=== PATIENT | male | born 1940 | race Caucasian/White ===

== ENCOUNTER 2021-12-10 15:01 | Emergency (ER) | payer OTHER, SELFPAY ==
[2021-12-10 15:06] VITALS: BP 147/80; PULSE 97; RESP 20; TEMP 36.4; O2SAT 96
--- NOTE | 2021-12-10 15:19 | ED.SKABFB ---
HPI - Skin/Abscess/Foreign Bdy General Chief complaint: Skin/Abscess/Foreign Body Stated complaint: boil Time Seen by Provider: 12/10/21 15:19 Source: patient Mode of arrival: ambulatory Limitations: no limitations History of Present Illness HPI narrative: 81 y/o male presented for c/o abscess to right upper thigh onset 5 days ago, states it has opened and drained but continues to drain. Endorses tenderness to the site when walking or sitting. Denies n/v/f/c. Denies any other locations. Has applied gauze to the site. complaint: rash Related Data Home Medications Medication Instructions Recorded Confirmed amlodipine 10 mg tablet 1 tablet PO DAILY 12/10/21 12/10/21 bimatoprost 0.01 % eye drops 1 drp EACH EYE DAILY 12/10/21 12/10/21 (Falguni) ezetimibe 10 mg tablet 1 tablet PO DAILY 12/10/21 12/10/21 latanoprost 0.005 % eye drops 1 drp EACH EYE HS 12/10/21 12/10/21 tamsulosin 0.4 mg capsule 1 cap PO DAILY 12/10/21 12/10/21 terazosin 10 mg capsule 1 cap PO DAILY 12/10/21 12/10/21 Allergies Allergy/AdvReac Type Severity Reaction Status Date / Time No Known Allergies Allergy Verified 12/10/21 15:03 Review of Systems Review of Systems: CONSTITUTIONAL: Denies body aches, fever, chills, or sweats. CARDIOVASCULAR: Denies chest pain, palpitations, or edema. RESPIRATORY: Denies cough or dyspnea. SKIN: endorses boil MUSCULOSKELETAL: Denies back pain, joint pain, or myalgia. NEUROLOGIC: Denies headache, numbness, tingling, or weakness. [facility] Past Medical History Medical History Anxiety Arthritis Hypertension Kidney stone Skin cancer Surgical History Surgical History History of partial knee replacement Family History Family History Mother , Age 89 Heart problems Arthritis Father , Age 69 Colon Cancer Colon cancer Grandparent , Age 94 Old Age No problems noted. Grandparent , Age 76 Heart Problems No problems noted. Grandparent , Age 72 Heart Problems No problems noted. Grandparent , Age 82 Heart Problems COPD (chronic obstructive pulmonary disease) Son , Age 54 Heart Problems No problems noted. Social History Social History Smoking status: Never smoker Alcohol intake: never Substance use: never Gender identity (if verbalized by the patient): Male Comments At time of signature, I have reviewed and agree with nursing past medical, surgical, social and family history unless otherwise noted. Please see nursing chart for further information. There is no relevant family history pertinent to the presenting complaint Exam Narrative: GENERAL: Well-appearing ENT: Mucous membranes moist. Oropharynx without edema, erythema or lesions. NECK: Supple. No lymphadenopathy CHEST: Clear to auscultation. No respiratory distress. HEART: Regular rate and rhythm. SKIN: Warm, dry. Right upper inner thigh with abscess approx 2cm diameter fluctuant center, scant amount of active purulent drainage; surrounding erythema and induration approx 10 cm diameter. NEURO: Alert and oriented x3. Course Course Emergency Course: Patient is aware of diagnosis, understands and agrees to treatment plan. Anticipatory guidance given. Patient agrees to follow-up as directed and is aware of reasons to seek care at the emergency department. Portions of this record may have been created with voice recognition software Level of Care: Express Care Visit Vital Signs Vital signs: Vital Signs Temperature 97.5 F L 12/10/21 15:06 Pulse Rate 97 12/10/21 15:06 Respiratory Rate 20 12/10/21 15:06 Blood Pressure 147/80 H 12/10/21 15:06
[2021-12-10] MEDS: LIDOCAINE HCL 1% LOCAL INJ 20 ML VIAL 5 ML INFILTRATE (15:33)
== END 2021-12-10 16:05 | disposition home or self-care (01) ==
PROVIDERS: Emergency Provider Nurse Practitioner Family
DX: L02.415 Cutaneous abscess of right lower limb (principal); M19.90 Unspecified osteoarthritis, unspecified site; I10 Essential (primary) hypertension; Z96.659 Presence of unspecified artificial knee joint; Z85.828 Personal history of other malignant neoplasm of skin
CPT/HCPCS: 10061; 87070; 87075; 87147; 87181; 87186; 87205; 99213; G0463

== ENCOUNTER 2021-12-15 18:23 | Emergency (ER) | payer OTHER, SELFPAY ==
[2021-12-15 19:03] VITALS: BP 139/86; PULSE 92; RESP 20; TEMP 36.3; O2SAT 98
--- NOTE | 2021-12-15 19:07 | ED.SKABFB ---
HPI - Skin/Abscess/Foreign Bdy General Chief complaint: Skin/Abscess/Foreign Body Stated complaint: Boil Time Seen by Provider: 12/15/21 19:10 Source: patient and RN notes reviewed Mode of arrival: ambulatory Limitations: no limitations History of Present Illness HPI narrative: 81-year-old male presents to the [facility], was seen on December 10 and had an abscess opened and drained. At that time it was packed. Comes in today with increased pain and swelling. MD complaint: abscess/boil Related Data Home Medications Medication Instructions Recorded Confirmed amlodipine 10 mg tablet 1 tablet PO DAILY 12/10/21 12/15/21 bimatoprost 0.01 % eye drops 1 drp EACH EYE DAILY 12/10/21 12/15/21 (Lumigan) ezetimibe 10 mg tablet 1 tablet PO DAILY 12/10/21 12/15/21 latanoprost 0.005 % eye drops 1 drp EACH EYE HS 12/10/21 12/15/21 tamsulosin 0.4 mg capsule 1 cap PO DAILY 12/10/21 12/15/21 terazosin 10 mg capsule 1 cap PO DAILY 12/10/21 12/15/21 Allergies Allergy/AdvReac Type Severity Reaction Status Date / Time No Known Allergies Allergy Verified 12/10/21 15:03 Review of Systems Review of Systems: All systems reviewed & are unremarkable except as noted in HPI and below Constitutional: Constitutional: Reports no additional constitutional complaints, Denies chills and Denies fever(s) Eyes: Eyes: Reports no additional eye complaints ENT: Reports system reviewed and no additional complaints, except as documented Cardiovascular: Cardiovascular: Reports no additional cardiovascular complaints Respiratory: Respiratory: Reports no additional respiratory complaints Gastrointestinal: Gastrointestinal: Reports no additional gastrointestinal complaints Musculoskeletal: Musculoskeletal: Reports no additional musculoskeletal complaints Integumentary/Breasts: Skin/Breast: Reports as per HPI and Reports erythema (Inner upper right thigh) Neurologic: Reports system reviewed and no additional complaints, except as documented Psychiatric: Psychiatric: Reports no additional psychiatric complaints Allergic/Immunologic: Allergic/Immunologic: Reports no additional allergic/immunologic complaints [facility] Past Medical History Medical History Anxiety Arthritis Hypertension Kidney stone Skin cancer Surgical History Surgical History History of partial knee replacement Family History Family History Mother , Age 89 Heart problems Arthritis Father , Age 69 Colon Cancer Colon cancer Grandparent , Age 94 Old Age No problems noted. Grandparent , Age 76 Heart Problems No problems noted. Grandparent , Age 72 Heart Problems No problems noted. Grandparent , Age 82 Heart Problems COPD (chronic obstructive pulmonary disease) Son , Age 54 Heart Problems No problems noted. Social History Social History Smoking status: Never smoker Alcohol intake: never Substance use: never Gender identity (if verbalized by the patient): Male Comments At the time of my signature, I reviewed and agree with the nursing past medical, surgical, social, and family history. There is no relevant family history pertinent to the patient complaint. Exam Const: General: healthy appearing, no acute distress and alert Nutritional Appearance: well nourished Orientation/consciousness: patient oriented x3 Limitations: no limitations HENMT: Head: normal to inspection Ears: external ears normal Eyes: General: appearance normal, both eyes and all related structures Pupils: Equal, round and reactive pupils present Neck: Neck: normal visual inspection, no lymphadenopathy and no meningeal s
== END 2021-12-15 19:18 | disposition short-term general hospital (02) ==
PROVIDERS: Emergency Provider Nurse Practitioner; PCP Internal Medicine
DX: L03.113 Cellulitis of right upper limb (principal); M19.90 Unspecified osteoarthritis, unspecified site; F41.9 Anxiety disorder, unspecified; Z85.828 Personal history of other malignant neoplasm of skin
CPT/HCPCS: 99212; G0463

== ENCOUNTER 2021-12-15 20:39 | Emergency (ER) | payer OTHER, SELFPAY ==
[2021-12-15 20:49] VITALS: BP 130/78; PULSE 105; RESP 14; TEMP 36.5; O2SAT 97
--- NOTE | 2021-12-15 21:36 | ED.SKABFB ---
HPI - Skin/Abscess/Foreign Bdy General Chief complaint: Skin/Abscess/Foreign Body Stated complaint: wound on upper right leg. Time Seen by Provider: 12/15/21 20:55 Source: patient History of Present Illness HPI narrative: Patient presents with lesion on his right leg. Patient reports he has had symptoms for little over a week was seen in urgent care started on Keflex for 5 days reports there is still some redness and is referred to the ER for further evaluation. Patient denies any fevers, chills, nausea, vomiting. Reports his pain is greatly improved and overall is feeling better after his course but there is still some redness. Related Data Home Medications Medication Instructions Recorded Confirmed amlodipine 10 mg tablet 1 tablet PO DAILY 12/10/21 12/15/21 bimatoprost 0.01 % eye drops 1 drp EACH EYE DAILY 12/10/21 12/15/21 (Blaineaure) ezetimibe 10 mg tablet 1 tablet PO DAILY 12/10/21 12/15/21 latanoprost 0.005 % eye drops 1 drp EACH EYE HS 12/10/21 12/15/21 tamsulosin 0.4 mg capsule 1 cap PO DAILY 12/10/21 12/15/21 terazosin 10 mg capsule 1 cap PO DAILY 12/10/21 12/15/21 Allergies Allergy/AdvReac Type Severity Reaction Status Date / Time No Known Allergies Allergy Verified 12/15/21 20:53 Review of Systems Review of Systems: CONSTITUTIONAL: Denies fever, chills, or sweats. EYES: Denies visual changes, redness, or discharge. ENT: Denies rhinorrhea, congestion, sore throat, or otalgia. CARDIOVASCULAR: Denies chest pain, palpitations, or edema. RESPIRATORY: Denies cough or dyspnea. GASTROINTESTINAL: Denies abdominal pain, nausea, vomiting, or diarrhea. GENITOURINARY: Denies dysuria or hematuria. SKIN: Denies rash or itching. MUSCULOSKELETAL: Denies back pain, joint pain, or myalgia. NEUROLOGIC: Denies headache, numbness, dizziness, or weakness. PSYCHIATRIC: Denies anxiety or depression. All systems reviewed & are unremarkable except as noted in HPI and below PMFSH Past Medical History Medical History Anxiety Arthritis Hypertension Kidney stone Skin cancer Surgical History Surgical History History of partial knee replacement Family History Family History Mother , Age 89 Heart problems Arthritis Father , Age 69 Colon Cancer Colon cancer Grandparent , Age 94 Old Age No problems noted. Grandparent , Age 76 Heart Problems No problems noted. Grandparent , Age 72 Heart Problems No problems noted. Grandparent , Age 82 Heart Problems COPD (chronic obstructive pulmonary disease) Son , Age 54 Heart Problems No problems noted. Social History Social History Smoking status: Never smoker Alcohol intake: never Substance use: never Gender identity (if verbalized by the patient): Male Exam Narrative: GENERAL: Well-appearing, well-nourished, and in no acute distress. HEAD: Normocephalic, atraumatic. EYES: PERRLA and EOMI. ENT: Nares clear, no rhinorrhea or epistaxis. Mucous membranes moist. NECK: Supple. No masses. No JVD EXTREMITIES: Normal range of motion. Open wound on the right medial thigh approximately 1 and half centimeters by 5 cm with surrounding erythema and there is mild purulent drainage SKIN: Warm, dry, no rash. NEURO: No focal deficits. Alert and oriented x3. PSYCH: Normal mood and affect. Course Vital Signs Vital signs: Vital Signs Temperature 36.5 C 12/15/21 20:49 Pulse Rate 105 H 12/15/21 20:49 Respiratory Rate 14 12/15/21 20:49 Blood Pressure 130/78 12/15/21 20:49 Pulse Oximetry 97 12/15/21 20:49 Oxygen Delivery Room Air 12/15/21 20:49 Temperature 36.5 C 12/15/21 20:49 Puls
== END 2021-12-15 21:51 | disposition home or self-care (01) ==
PROVIDERS: Emergency Provider Emergency Medicine; PCP Internal Medicine
DX: L03.115 Cellulitis of right lower limb (principal); F41.9 Anxiety disorder, unspecified; M19.90 Unspecified osteoarthritis, unspecified site; I10 Essential (primary) hypertension
CPT/HCPCS: 99283

== ENCOUNTER 2022-02-06 15:50 | Emergency (ER) | payer OTHER, SELFPAY ==
--- NOTE | 2022-02-06 15:52 | ED.SKABFB ---
HPI - Skin/Abscess/Foreign Bdy General Chief complaint: Skin/Abscess/Foreign Body Stated complaint: Infection in the groin Time Seen by Provider: 02/06/22 16:10 Source: patient and RN notes reviewed Mode of arrival: ambulatory Limitations: no limitations History of Present Illness HPI narrative: 82-year-old male presents concern for redness, drainage, pain to his right groin and right testicle. He reports he was treated the beginning of December for an abscess and a staph infection. He reports he finished the antibiotic and the previously infected area is completely healed. He reports he noticed new redness, pain, drainage very close to the old infection several days ago. Reports it is spread to his scrotum. He denies fever, bodies, chills, sweats complaint: other (Infection) Related Data Home Medications Medication Instructions Recorded Confirmed amlodipine 10 mg tablet 1 tablet PO DAILY 12/10/21 12/15/21 bimatoprost 0.01 % eye drops 1 drp EACH EYE DAILY 12/10/21 12/15/21 (Lumigan) ezetimibe 10 mg tablet 1 tablet PO DAILY 12/10/21 12/15/21 latanoprost 0.005 % eye drops 1 drp EACH EYE HS 12/10/21 12/15/21 terazosin 10 mg capsule 1 cap PO DAILY 12/10/21 12/15/21 Allergies Allergy/AdvReac Type Severity Reaction Status Date / Time No Known Allergies Allergy Verified 02/06/22 16:08 Review of Systems Review of Systems: CONSTITUTIONAL: Denies malaise, chills, sweats, or fever. EYES: Denies redness, or discharge. ENT: Denies rhinorrhea, congestion, swollen lips, swollen tongue CARDIOVASCULAR: Denies chest pain, palpitations, or edema. RESPIRATORY: Denies cough or dyspnea. GASTROINTESTINAL: Denies abdominal pain, nausea, vomiting SKIN: Reports redness, warmth, tenderness to the right groin and scrotum MUSCULOSKELETAL: Denies joint pain or myalgia. NEUROLOGIC: Denies headache. All systems reviewed & are unremarkable except as noted in HPI and below PMFSH Past Medical History Medical History Anxiety Arthritis Hypertension Kidney stone Skin cancer Surgical History Surgical History History of partial knee replacement Family History Family History Mother , Age 89 Heart problems Arthritis Father , Age 69 Colon Cancer Colon cancer Grandparent , Age 94 Old Age No problems noted. Grandparent , Age 76 Heart Problems No problems noted. Grandparent , Age 72 Heart Problems No problems noted. Grandparent , Age 82 Heart Problems COPD (chronic obstructive pulmonary disease) Son , Age 54 Heart Problems No problems noted. Social History Social History Smoking status: Never smoker Alcohol intake: never Substance use: never Gender identity (if verbalized by the patient): Male Comments At time of signature, agree with nursing past medical, surgical, social and family history. There is no relevant family history pertinent to the presenting complaint Exam Narrative: GENERAL: Well-appearing, well-nourished, and in no acute distress. HEAD: Normocephalic, atraumatic. EYES: PERRLA, conjunctivae clear, and EOMI. ENT: Mucous membranes moist. Oropharynx without edema, erythema or lesions. NECK: Supple. No lymphadenopathy CHEST: Clear to auscultation. No respiratory distress. HEART: Regular rate and rhythm. SKIN: Warm, dry. Erythema, warmth, induration, purulent drainage noted to the right groin extending into the right scrotum, no palpable fluctuation NEURO: Alert and oriented x3. PSYCH: Normal mood and affect Course Course Emergency Course: Patient is aware of, understands and agrees to be transferred to the emergency department. Anti
[2022-02-06 15:58] VITALS: BP 131/91; PULSE 103; RESP 18; TEMP 36.7; O2SAT 97
== END 2022-02-06 16:28 | disposition short-term general hospital (02) ==
PROVIDERS: Emergency Provider Nurse Practitioner; PCP Internal Medicine
DX: L08.9 Local infection of the skin and subcutaneous tissue, unspecified (principal); M19.90 Unspecified osteoarthritis, unspecified site; I10 Essential (primary) hypertension; Z85.828 Personal history of other malignant neoplasm of skin
CPT/HCPCS: 87070; 87075; 87076; 87147; 87185; 87205; 99213; G0463

== ENCOUNTER 2022-02-06 16:48 | Emergency (ER) | payer OTHER, SELFPAY ==
[2022-02-06 17:59] VITALS: BP 143/83; PULSE 90; RESP 18; TEMP 36.2; O2SAT 97
[2022-02-06 19:32] VITALS: BP 157/88; PULSE 108; RESP 18; O2SAT 97
[2022-02-06 19:34] LABS: Basophils Absolute Auto 0.1 K/mm3 (0.0-0.1); Basophils Percent Auto 0.5 % (0.2-1.2); Eosinophils Percent Auto 0.2 % (0-4.4); Hematocrit 39.3 % (42.0-52.0); Hemoglobin 12.7 g/dL (14.0-18.0); Immature Granulocyte Absolute 0.06 K/mm3 (0.00-0.031); Immature Granulocyte Percent A 0.5 % (0-0.5); Lymphocytes Absolute Auto 1.13 K/mm3 (0.9-3.2); Lymphocytes Percent Auto 10.3 % (18.3-44.2); Mean Corpuscular HGB Conc 32.3 g/dl (32-36); Mean Corpuscular Hemoglobin 30.8 pg (26-34); Mean Corpuscular Volume 95.4 fl (80-100); Mean Platelet Volume 9.3 fl (7.4-10.4); Monocytes Absolute Auto 0.6 K/mm3 (0.1-0.6); Monocytes Percent Auto 5.8 % (2.6-8.5); Neutrophils Absolute Auto 9.1 K/mm3 (1.3-6.7); Neutrophils Percent Auto 82.7 % (45.5-73.1); Platelet Count Result 258 k/mm3 (150-375); Red Blood Count 4.12 M/mm3 (4.6-6.20); Red Cell Distribution Width 13.4 % (11.5-14.5)
[2022-02-06 19:44] LABS: Alanine Aminotransferase 16 U/L (6-50); Albumin Level 4.2 g/dL (3.5-5.1); Alkaline Phosphatase 111 U/L (38-126); Anion Gap 9 mmol/L (8-16); Aspartate Amino Transferase 24 U/L (17-59); Bilirubin,Total 0.6 mg/dL (0.2-1.3); Blood Urea Nitrogen 17 mg/dL (9-20); Calcium 8.4 mg/dL (8.4-10.2); Carbon Dioxide 26 mmol/L (22-30); Chloride 106 mmol/L (98-107); Estimated CRCL calculation 96 ml/min; Estimated Glomerular Filt Rate > 60; Glucose 109 mg/dL (65-110); Lipase 75 U/L (23-300); Potassium 4.1 mmol/L (3.4-5.0); Sodium 141 mmol/L (137-145)
[2022-02-06 20:14] LABS: Add Urine Microscopic? YES; Appearance Urine Clear (Clear); Bilirubin Urine Negative (Negative); Blood Urine Negative (Negative); Color Urine Yellow (Yellow); Glucose Urine UA Negative (Negative); Ketones Urine Trace mg/dL (Negative); Leukocyte Esterase Ur Negative LEU/UL (Negative); Nitrate Urine Negative (Negative); Protein Urine Negative (Negative); Urobilinogen Urine 0.2 mg/dL (<2.0)
[2022-02-06 20:17] LABS: Mucus Urine Few /lpf; RBC Urine 0-2 /hpf (0-2); Squamous Epithelial Cell Urine Rare /hpf (Few); WBC Urine 0-3 /hpf
--- NOTE | 2022-02-06 20:17 | ED.WOUNDLAC ---
HPI - Wound/Laceration General Chief Complaint: Wound/Laceration Stated Complaint: groin infection Time Seen by Provider: 02/06/22 18:08 History of Present Illness HPI narrative: Patient is an 82-year-old male who presents ER with concerns for infection to his groin. He was seen in urgent care and they were concerned and sent him here. Patient denies fevers or chills or sweats. No pain. The last week he has developed weeping in his groin and is developed some loss of skin. No fevers or chills or sweats. Reports couple weeks prior to this he had been on long course of antibiotics for dental dental work and attempt to prevent a prosthetic infection. Patient also recently had an abscess in the area month ago that had been I&D and then healed well without issue. He reports this is different than the previous infection. Related Data Home Medications Medication Instructions Recorded Confirmed amlodipine 10 mg tablet 1 tablet PO DAILY 12/10/21 02/06/22 bimatoprost 0.01 % eye drops 1 drp EACH EYE DAILY 12/10/21 02/06/22 (Blaineigan) ezetimibe 10 mg tablet 1 tablet PO DAILY 12/10/21 02/06/22 latanoprost 0.005 % eye drops 1 drp EACH EYE HS 12/10/21 02/06/22 terazosin 10 mg capsule 1 cap PO DAILY 12/10/21 02/06/22 Allergies Allergy/AdvReac Type Severity Reaction Status Date / Time No Known Allergies Allergy Verified 02/06/22 16:08 Review of Systems Review of Systems: All systems reviewed & are unremarkable except as noted in HPI and below Constitutional: Constitutional: Denies chills, Denies fatigue and Denies fever(s) ENT: Denies nasal congestion and Denies sore throat Cardiovascular: Cardiovascular: Denies chest pain and Denies rapid heart rate Respiratory: Respiratory: Denies cough and Denies dyspnea Genitourinary: Genitourinary: Denies dysuria and Denies testicular pain Integumentary/Breasts: Skin/Breast: Denies pruritus, Reports erythema, Reports rash and Reports skin ulcer PMFSH Past Medical History Medical History Anxiety Arthritis Hypertension Kidney stone Skin cancer Surgical History Surgical History History of partial knee replacement Family History Family History Mother , Age 89 Heart problems Arthritis Father , Age 69 Colon Cancer Colon cancer Grandparent , Age 94 Old Age No problems noted. Grandparent , Age 76 Heart Problems No problems noted. Grandparent , Age 72 Heart Problems No problems noted. Grandparent , Age 82 Heart Problems COPD (chronic obstructive pulmonary disease) Son , Age 54 Heart Problems No problems noted. Social History Social History Smoking status: Never smoker Alcohol intake: never Substance use: never Gender identity (if verbalized by the patient): Male Exam Narrative: GENERAL: Well-appearing, well-nourished, and in no acute distress. HEAD: Normocephalic, atraumatic. CHEST: Clear to auscultation. No respiratory distress. HEART: Regular rate and rhythm. Normal peripheral pulses. ABDOMEN: Soft, nontender, nondistended. EXTREMITIES: Normal range of motion. No edema. SKIN: Warm, dry. Inguinal region bilaterally with red moist rash creating a small fissure on the right side. On the right side it abuts the scrotal wall. There is no tenderness of the rash or skin of the scrotum or groin. There is no fluctuance. No tenderness of the perineum. NEURO: Alert and oriented x3. PSYCH: Normal mood and affect. Course Course Emergency Course: Patient is developed candidal infection bilaterally due to the fact that he is intermittently incontinent of urine and sits in wet diaper and als
[2022-02-06] MEDS: FLUCONAZOLE 150 MG TABLET PO (20:29)
[2022-02-06 20:55] VITALS: BP 149/76; PULSE 81; RESP 16; O2SAT 96
== END 2022-02-06 20:55 | disposition home or self-care (01) ==
PROVIDERS: Emergency Provider Emergency Medicine; PCP Internal Medicine
DX: B37.2 Candidiasis of skin and nail (principal); M19.90 Unspecified osteoarthritis, unspecified site; I10 Essential (primary) hypertension; Z87.442 Personal history of urinary calculi; Z85.828 Personal history of other malignant neoplasm of skin; Z96.659 Presence of unspecified artificial knee joint
CPT/HCPCS: 36415; 80053; 81001; 83690; 85025; 87070; 87075; 87205; 99283; A9270

== ENCOUNTER 2022-02-08 21:33 | Emergency (ER) | payer OTHER, SELFPAY ==
--- NOTE | ~2022-02-08 | CT_ITS ---
EXAMINATION: CT abdomen pelvis w con DATE: 02/08/2022 23:03 INDICATION: Pelvic pain. TECHNIQUE: Computed tomography (CT) of the abdomen and pelvis was performed with 100 mL Omnipaque 350 intravenous contrast. Automated exposure control and iterative reconstruction technique were employe d. The dose-length product was 1995.08 mGy-cm. COMPARISON: None. FINDINGS: The visualized portions of the lung bases demonstrate mild atelectasis. There is a 5 mm nod ule in right lower lobe, likely benign. No pleural effusion. The heart size is normal. No pericardial effusion. There is a small sliding hiatal hernia. There is liver surface nodularity. There are galls tones in the gallbladder, which is distended. The spleen is normal. There are calcifications within p rostate, consistent with chronic pancreatitis. There is a 1.8 cm mass in right adrenal gland measurin g soft tissue attenuation. There is an 11 mm mass in left adrenal gland containing fat, consistent wi th a myelolipoma. There is cortical thinning of the kidneys. There is a 3.6 cm cyst in left kidney. T he prostate is moderately enlarged. There are likely changes of bilateral inguinal hernia repairs. Th ere is diverticulosis of the colon without evidence of diverticulitis. There are no dilated loops of bowel. The appendix is normal. There is a lipoma in left flank. There are no pathologically enlarged lymph nodes. There is no free intraperitoneal fluid. There are benign bone islands in left ilium and proximal left femur. There is moderate lumbar spondylosis and mild thoracic spondylosis. IMPRESSION: 1. Distended gallbladder with gallstones. Correlate with physical exam for evidence of acute cholecys titis. 2. 1.8 cm mass in right adrenal gland. In the absence of known malignancy, this finding is likely an adenoma. 3. Liver surface nodularity suspicious for cirrhosis. Reviewed, dictated and finalized at location A. IMPRESSION: 1. Distended gallbladder with gallstones. Correlate with physical exam for evid ence of acute cholecystitis. 2. 1.8 cm mass in right adrenal gland. In the absence of known malignancy, this finding is likely an adenoma. 3. Liver surface nodularity suspicious for cirrhosis.
[2022-02-08 21:36] VITALS: BP 151/100; PULSE 107; RESP 16; TEMP 37.1; O2SAT 98
[2022-02-08 22:20] LABS: Basophils Absolute Auto 0.1 K/mm3 (0.0-0.1); Basophils Percent Auto 0.4 % (0.2-1.2); Eosinophils Absolute Auto 0.1 K/mm3 (0-0.3); Eosinophils Percent Auto 0.6 % (0-4.4); Hematocrit 39.1 % (42.0-52.0); Hemoglobin 12.7 g/dL (14.0-18.0); Immature Granulocyte Absolute 0.09 K/mm3 (0.00-0.031); Immature Granulocyte Percent A 0.7 % (0-0.5); Lymphocytes Absolute Auto 1.01 K/mm3 (0.9-3.2); Mean Corpuscular HGB Conc 32.5 g/dl (32-36); Mean Corpuscular Hemoglobin 30.8 pg (26-34); Mean Corpuscular Volume 94.9 fl (80-100); Mean Platelet Volume 9.2 fl (7.4-10.4); Monocytes Percent Auto 7.7 % (2.6-8.5); Neutrophils Absolute Auto 10.5 K/mm3 (1.3-6.7); Neutrophils Percent Auto 82.6 % (45.5-73.1); Platelet Count Result 274 k/mm3 (150-375); Red Blood Count 4.12 M/mm3 (4.6-6.20); Red Cell Distribution Width 13.6 % (11.5-14.5); White Blood Count 12.7 K/mm3 (4.5-10.0)
--- NOTE | 2022-02-08 22:22 | ED.MALEGU ---
HPI - Male Genitourinary General Chief complaint: Urogenital-Male Stated complaint: infection in groin area Time Seen by Provider: 02/08/22 21:56 History of Present Illness HPI Narrative: Patient is an 82-year-old male complaining of redness and pain around his testicular, perineum and inguinal area started 3 days ago. Patient was seen here 2 days ago and diagnosed with Ginny infection of the genital region and placed on nystatin powder. Patient states that he is not any better and still having pain. Patient denies any fever or chills. Related Data Home Medications Medication Instructions Recorded Confirmed amlodipine 10 mg tablet 1 tablet PO DAILY 12/10/21 02/06/22 bimatoprost 0.01 % eye drops 1 drp EACH EYE DAILY 12/10/21 02/06/22 (Falguni) ezetimibe 10 mg tablet 1 tablet PO DAILY 12/10/21 02/06/22 latanoprost 0.005 % eye drops 1 drp EACH EYE HS 12/10/21 02/06/22 terazosin 10 mg capsule 1 cap PO DAILY 12/10/21 02/06/22 Allergies Allergy/AdvReac Type Severity Reaction Status Date / Time No Known Allergies Allergy Verified 02/08/22 21:38 Review of Systems Review of Systems: All systems reviewed & are unremarkable except as noted in HPI and below Constitutional: Constitutional: Denies body ache(s), Denies chills, Denies excessive sweating, Denies fatigue, Denies fever(s), Denies headache(s), Denies lethargy, Denies malaise, Denies weakness and Denies weight loss Eyes: Eyes: Denies blurry vision, Denies change in vision and Denies loss of vision ENT: Denies dizziness, Denies ear discharge, Denies headache(s), Denies lip swelling, Denies epistaxis, Denies nasal congestion, Denies neck pain, Denies throat swelling and Denies tongue swelling Cardiovascular: Cardiovascular: Denies chest pain, Denies chest pain at rest, Denies chest pain with activity, Denies diaphoresis, Denies rapid heart rate, Denies edema, Denies irregular heart rhythm, Denies lightheadedness, Denies palpitations, Denies dyspnea and Denies dyspnea on exertion Respiratory: Respiratory: Denies chest congestion, Denies cough, Denies hemoptysis, Denies dyspnea and Denies dyspnea on exertion Gastrointestinal: Gastrointestinal: Denies abdominal pain, Denies melena, Denies hematochezia, Denies diarrhea, Denies nausea, Denies vomiting and Denies hematemesis Musculoskeletal: Musculoskeletal: Denies abnormal gait, Denies deformity, Denies joint swelling, Denies limited range of motion, Denies neck pain and Denies numbness Neurologic: Denies Abnormal speech present, Denies abnormal gait, Denies confusion, Denies dizziness, Denies headache(s), Denies focal weakness, Denies loss of vision, Denies numbness, Denies Other visual disturbances, Denies Sensory deficit (Neuro) and Denies weakness Psychiatric: Psychiatric: Denies confusion, Denies depression, Denies auditory hallucinations, Denies homicidal ideation and Denies suicidal ideation Endocrine: Endocrine: Denies cold intolerance, Denies excessive sweating, Denies fatigue, Denies heat intolerance and Denies palpitations Hematologic/Lymphatic: Hematologic/Lymphatic: Denies easy bleeding and Denies easy bruising Allergic/Immunologic: Allergic/Immunologic: Denies lip swelling, Denies throat swelling and Denies tongue swelling PMFSH Past Medical History Medical History Anxiety Arthritis Hypertension Kidney stone Skin cancer Surgical History Surgical History History of partial knee replacement Family History Family History Mother , Age 89 Heart problems Arthritis Father , Age 69 Colon Cancer Colon cancer Grandparent , Age 94 Old Age No problems noted. Grandparent , Age 76 Heart Problems No problems noted. Grandparent , Age 72 Heart
[2022-02-08] MEDS: LACTATED RINGERS 1,000 ML 250 ML IV CONT (22:28)
[2022-02-08 22:35] LABS: Anion Gap 9 mmol/L (8-16); Blood Urea Nitrogen 16 mg/dL (9-20); Calcium 8.6 mg/dL (8.4-10.2); Carbon Dioxide 28 mmol/L (22-30); Chloride 102 mmol/L (98-107); Estimated CRCL calculation 102 ml/min; Estimated Glomerular Filt Rate > 60; Glucose 121 mg/dL (65-110); Potassium 3.8 mmol/L (3.4-5.0); Sodium 139 mmol/L (137-145)
[2022-02-08 23:47] VITALS: BP 142/89; PULSE 89; RESP 18; O2SAT 99
== END 2022-02-08 23:49 | disposition home or self-care (01) ==
PROVIDERS: Emergency Provider Emergency Medicine; PCP Internal Medicine
DX: B37.2 Candidiasis of skin and nail (principal); I10 Essential (primary) hypertension; M19.90 Unspecified osteoarthritis, unspecified site; F41.9 Anxiety disorder, unspecified; Z87.442 Personal history of urinary calculi; Z85.828 Personal history of other malignant neoplasm of skin; Z96.659 Presence of unspecified artificial knee joint
CPT/HCPCS: 36415; 74177; 80048; 83605; 85025; 96360; 99284; J7120; Q9967

== ENCOUNTER 2022-07-04 21:25 | Inpatient (IN) | payer OTHER, SELFPAY ==
--- NOTE | ~2022-07-04 | XR_ITS ---
EXAMINATION: XR ankle LT min 3V DATE: 07/05/2022 12:31 INDICATION: Reduction and splinting of a trimalleolar fracture of the left ankle TECHNIQUE: Anteroposterior, oblique and lateral views of the left ankle were obtained. COMPARISON: None. FINDINGS: Again seen is a trimalleolar fracture of the left ankle. No significant change in 4 mm lateral displa cement of the lateral malleolar fragment but reduction of the prior lateral angulation. There is angel esponding decrease in the degree of lateral displacement of the talar dome and medial malleolar fragm ent relative to the distal tibia. Again seen is a suspected small likely avulsion fracture fragment a rising from the anteromedial margin of the tibial plafond. 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 Fiberglas splinting about the ankl e extending to the foot and lower leg. IMPRESSION: 1. Reduction of prior lateral angulation with mild persistent lateral displacement of the tibiotalar joint and trimalleolar fracture at the left ankle. Reviewed, dictated and finalized at location A. BURNER JOURNEYMAN IMPRESSION: 1. Reduction of prior lateral angulation with mild persistent lateral displacem ent of the tibiotalar joint and trimalleolar fracture at the left ankle.
--- NOTE | ~2022-07-04 | XR_ITS ---
EXAMINATION: XR surgery orthopedic DATE: 07/06/2022 13:00 ANTHROPOLOGY AND ARCHEOLOGY INSTRUCTOR INDICATION: LEFT FIBULAR FX ORIF . TECHNIQUE: 3 fluoroscopic images of the left ankle were obtained during left fibular fracture ORIF pe rformed by the surgeon. I was not present in the operating room. Fluoroscopy exposure time was 14 sec onds. Air Kerma 0.7903 mGy. DAP 0.0157 mGym2. COMPARISON: 07/05/2022 FINDINGS: Screw and plate fixation of the distal left fibula into near-anatomic alignment. IMPRESSION: Fluoroscopic documentation of left fibular fracture ORIF. Please refer to the operative note for comp lete procedural details . Reviewed, dictated and finalized at location K. ROPOLOGY AND ARCHEOLOGY INSTRUCTOR IMPRESSION: Fluoroscopic documentation of left fibular fracture ORIF. Please refer to the o perative note for complete procedural details .
--- NOTE | ~2022-07-04 | XR_ITS ---
EXAMINATION: XR ankle LT min 3V DATE: 07/05/2022 11:46 INDICATION: Post splinting of left ankle trimalleolar fracture. TECHNIQUE: Anteroposterior, oblique and lateral views of the left ankle were obtained. COMPARISON: None. FINDINGS: Interval attempted reduction and splinting of a previously described trimalleolar fracture at the lef t ankle. Unchanged mild lateral displacement of the lateral malleolar fragment, now with slight later al angulation resulting in right increase in the widening of the medial clear space and caudally stil l relatively mild lateral subluxation of the talar dome and distal medial malleolar fragment relative to the more proximal tibia. No new fractures identified. Persistent diffuse soft tissue swelling abo ut the left ankle and lower leg and hindfoot. Moderate-sized plantar calcaneal spur. Mild polyarticul ar osteoarthritis at the left ankle and visualized mid and hindfoot. IMPRESSION: 1. Left ankle trimalleolar fracture with slight increase in the degree of lateral subluxation of the talar and associated medial and lateral malleolar fragments relative to the more proximal tibia post splinting. Reviewed, dictated and finalized at location A. ATIONS MANAGER STATION IMPRESSION: 1. Left ankle trimalleolar fracture with slight increase in the degree of later al subluxation of the talar and associated medial and lateral malleolar fragmen ts relative to the more proximal tibia post splinting.
--- NOTE | ~2022-07-04 | US_ITS ---
Duplex Sonography of the bilateral lower extremities: Indication: Swelling Sagittal and transverse B-mode images as well as color-flow imaging were performed on the right and l eft femoral and popliteal veins. B-mode examination was done without and with compression in the tra nsverse plane. There is good visualization of the bilateral common femoral, proximal profunda femora l, superficial femoral, greater saphenous, and popliteal veins. Normal flow was seen on color-flow im aging. Normal compressibility was demonstrated. Visualized right calf veins are also patent. Left calf veins is not visualized due to recent surgery in this region. Impression: No DVT identified. Reviewed, dictated and finalized at location M. WORKER Impression: No DVT identified.
--- NOTE | ~2022-07-04 | XR_ITS ---
EXAMINATION: XR ankle LT min 3V DATE: 07/04/2022 22:35 INDICATION: Ankle pain, swelling and bruising TECHNIQUE: Anteroposterior, oblique, mortise, and lateral views of the left ankle were obtained. COMPARISON: None. FINDINGS: Oblique fracture of the lateral malleolus which exits the medial cortex at the level of the tibiotala r joint line and with 5 mm lateral displacement. Suggestion of an associated avulsion fracture involv ing the anterolateral margin of the tibial plafond and which is similarly laterally displaced in conj unction with the lateral malleolar fragment. Small horizontal avulsion fracture of the tip of the med ial malleolus and suggestion of a small minimally displaced fracture along the posterior malleolus. A few millimeter lateral subluxation and slight valgus angulation at the tibiotalar joint line resulti ng in widening of the medial clear space. Conscious sedation findings would be consistent with an uns table, Waggoner type B3 injury pattern. Normal alignment and no evident fractures within the visualized left foot. Mild polyarticular osteoarthritis at the left mid and hindfoot. Moderate-sized plantar veronica caneal spur. Prominent soft tissue swelling about the ankle. IMPRESSION: 1. Mildly displaced left ankle trimalleolar fracture with possible additional small avulsion fracture at the anteromedial aspect of the tibial plafond. Reviewed, dictated and finalized at location A. CLEANING MACHINE TENDER IMPRESSION: 1. Mildly displaced left ankle trimalleolar fracture with possible additional s mall avulsion fracture at the anteromedial aspect of the tibial plafond.
--- NOTE | ~2022-07-04 | XR_ITS ---
EXAMINATION: XR chest 1V portable DATE: 07/05/2022 10:11 INDICATION: Ankle fracture 4 preoperative evaluation TECHNIQUE: frontal view of the chest was obtained. COMPARISON: None FINDINGS: 1 cm nodular opacity projecting over the left upper lung zone. Small pericardial fat pad extending la terally from the apex of the heart. No other airspace opacities, pulmonary edema, pleural effusion or pneumothorax. Heart size is normal. Tortuous descending thoracic aorta. IMPRESSION: 1. 1 cm nodular opacity projecting over the left upper lung zone which could represent a calcified or noncalcified pulmonary nodule or potentially costochondral calcification. Consider follow-up low-dos e noncontrast chest CT. 2. No other acute cardiopulmonary disease. Reviewed, dictated and finalized at location A. ITY SYSTEM MANAGER IMPRESSION: 1. 1 cm nodular opacity projecting over the left upper lung zone which could re present a calcified or noncalcified pulmonary nodule or potentially costochondr al calcification. Consider follow-up low-dose noncontrast chest CT. 2. No other acute cardiopulmonary disease.
[2022-07-04 21:28] VITALS: BP 112/75; PULSE 98; RESP 18; TEMP 36.6; O2SAT 96
[2022-07-04 23:58] VITALS: BP 128/72; PULSE 98; RESP 16; O2SAT 95
[2022-07-05 06:58] VITALS: BP 131/67; PULSE 93; RESP 18; TEMP 37.2; O2SAT 97
--- NOTE | 2022-07-05 07:02 | ED.LOWEXIN ---
HPI - Extremity Injury (Lower) General Chief Complaint: Extremity Injury, Lower Stated Complaint: L ankle injury Time Seen by Provider: 07/05/22 07:01 History of Present Illness HPI Narrative: Patient is an 82-year-old male presenting with a left ankle injury. Patient states that he slipped on some ice or snow and he twisted his left ankle in the process. States that he fell to his left left-sided. Denies striking his head or losing consciousness. No neck or back pain. He had difficulty ambulating afterwards so came in for evaluation. States he has not taken anything for pain. No numbness or weakness. Denies further complaints or injury. Related Data Home Medications Medication Instructions Recorded Confirmed amlodipine 10 mg tablet 1 tablet PO HS 12/10/21 07/05/22 ezetimibe 10 mg tablet 1 tablet PO DAILY 12/10/21 07/05/22 latanoprost 0.005 % eye drops 1 drp EACH EYE HS 12/10/21 07/05/22 terazosin 10 mg capsule 10 mg PO HS 12/10/21 07/05/22 finasteride 5 mg tablet 5 mg PO 1700 07/05/22 07/05/22 tamsulosin 0.4 mg capsule 0.4 mg PO Q12H 07/05/22 07/05/22 Allergies Allergy/AdvReac Type Severity Reaction Status Date / Time No Known Allergies Allergy Verified 07/05/22 07:01 Review of Systems Review of Systems: All systems reviewed & are unremarkable except as noted in HPI and below PMFSH Past Medical History Medical History Anxiety Arthritis Benign prostatic hyperplasia Glaucoma Hyperlipidemia Hypertension Kidney stone Skin cancer Surgical History Surgical History History of inguinal hernia repair, bilateral History of partial knee replacement Bilateral. History of tonsillectomy Family History Family History Mother , Age 89 Heart problems Arthritis Father , Age 69 Colon Cancer Colon cancer Grandparent , Age 94 Old Age No problems noted. Grandparent , Age 76 Heart Problems No problems noted. Grandparent , Age 72 Heart Problems No problems noted. Grandparent , Age 82 Heart Problems COPD (chronic obstructive pulmonary disease) Son , Age 54 Heart Problems No problems noted. Social History Social History Social History: Surrogate medical decision maker: Jeffrey James or Marisa Salvador, children. Code status: Full code. Smoking status: Never smoker Alcohol intake: never Substance use: never Lack of Transportation: No Lack of Food: Never True Current Housing: I Have Housing Concerned About Future Housing: No Difficulty Paying Gas/Electric Bills: No Difficulty Paying for Meds: No Currently Unemployed: No Education: High School Diploma/GED Difficulty w/ Childcare or Family Care: No Additional living arrangements comments: . Lives alone in [place]. No pets. He had 3 children, 1 passed from heart disease. Spiritual care concerns: No Exam Narrative: GENERAL: Well-appearing, well-nourished, and in no acute distress. HEAD: Normocephalic, atraumatic. EYES: PERRLA and EOMI. ENT: Nares clear, no rhinorrhea or epistaxis. Mucous membranes moist. NECK: Supple. CHEST: Clear to auscultation. No respiratory distress. HEART: Regular rate and rhythm. No murmur heard. Normal peripheral pulses. ABDOMEN: Soft, nontender, nondistended, normal active bowel sounds. EXTREMITIES: Left ankle with significant edema and ecchymosis, diffuse tenderness involving medial and lateral malleoli, neurovascularly intact distal to ankle SKIN: Warm, dry, no rash. NEURO: No focal deficits. Alert and oriented x3. PSYCH: Normal mood and affect. Course Vital Signs Vital signs: Vital Signs Temperature 97.9
[2022-07-05] MEDS: IBUPROFEN 600 MG TABLET PO (07:52)
[2022-07-05] MEDS: ACETAMINOPHEN 500 MG TABLET 1000 MG PO (07:52)
--- NOTE | 2022-07-05 09:53 | ECG_ITS ---
Measurements Intervals [place] Rate: 81 P: 31 WA: 163 QRS: -53 QRSD: 102 T: 49 QT: 398 QTc: 464 Interpretive Statements SINUS RHYTHM WITH SINUS ARRHYTHMIA LEFT ANTERIOR FASCICULAR BLOCK CANNOT RULE OUT ANTERIOR MYOCARDIAL INFARCTION, PROBABLY OLD ABNORMAL ECG NO PREVIOUS ECG AVAILABLE FOR COMPARISON Electronically Signed On 07-05-2022 15:55:02 GEOSCIENCE PROFESSOR by Nigel Ceballos M.D.
[2022-07-05 10:20] LABS: Basophils Percent Auto 0.3 % (0.2-1.2); Eosinophils Percent Auto 0.1 % (0-4.4); Hematocrit 36.5 % (42.0-52.0); Hemoglobin 12.1 g/dL (14.0-18.0); Immature Granulocyte Absolute 0.04 K/mm3 (0.00-0.031); Immature Granulocyte Percent A 0.4 % (0-0.5); Lymphocytes Absolute Auto 0.97 K/mm3 (0.9-3.2); Lymphocytes Percent Auto 10.4 % (18.3-44.2); Mean Corpuscular HGB Conc 33.2 g/dl (32-36); Mean Corpuscular Hemoglobin 31.3 pg (26-34); Mean Corpuscular Volume 94.6 fl (80-100); Mean Platelet Volume 9.2 fl (7.4-10.4); Monocytes Absolute Auto 0.7 K/mm3 (0.1-0.6); Monocytes Percent Auto 7.8 % (2.6-8.5); Neutrophils Absolute Auto 7.5 K/mm3 (1.3-6.7); Platelet Count Result 252 k/mm3 (150-375); Red Blood Count 3.86 M/mm3 (4.6-6.20); Red Cell Distribution Width 13.8 % (11.5-14.5); White Blood Count 9.3 K/mm3 (4.5-10.0)
[2022-07-05] MEDS: MORPHINE SULFATE (*CRX) 4 MG/ML INJ IV PUSH (10:20)
[2022-07-05 10:31] LABS: INR 1.1; Prothrombin Time 13.5 Seconds (11.1-14.7)
[2022-07-05 10:32] LABS: Alanine Aminotransferase 23 U/L (6-50); Albumin Level 4.1 g/dL (3.5-5.1); Alkaline Phosphatase 116 U/L (38-126); Anion Gap 7 mmol/L (8-16); Aspartate Amino Transferase 26 U/L (17-59); Bilirubin,Total 0.7 mg/dL (0.2-1.3); Blood Urea Nitrogen 28 mg/dL (9-20); Calcium 8.5 mg/dL (8.4-10.2); Carbon Dioxide 30 mmol/L (22-30); Chloride 106 mmol/L (98-107); Estimated CRCL calculation 84 ml/min; Estimated Glomerular Filt Rate > 60; Glucose 114 mg/dL (65-110); Partial Thromboplastin Time 30.6 SECONDS (22.3-36.8); Potassium 3.6 mmol/L (3.4-5.0); Sodium 143 mmol/L (137-145)
[2022-07-05 10:42] LABS: Influenza A QL RT-PCR Negative (Negative); Influenza B QL RT-PCR Negative (Negative); SARS-CoV-2 RNA PCR Negative
[2022-07-05 12:21] VITALS: BP 135/88; PULSE 88; O2SAT 96
--- NOTE | 2022-07-05 13:00 | PM.IMHP ---
H&P: HPI History of Present Illness Date/Time: 07/05/22 13:00 Chief Complaint: Left ankle injury. Narrative: This is a very pleasant 82-year-old male with history of hypertension, dyslipidemia, benign prostatic hyperplasia, and glaucoma who presented to the emergency department for evaluation of a left ankle injury. Yesterday he slipped on the ice, twisted his left ankle, and fell to the ground. He had immediate pain in the left ankle and could not get himself up. He came to the ED but the waiting was full and he came back today for evaluation. Since that time he has been resting at home with the leg elevated. Thus far his pain has been controlled with acetaminophen and ibuprofen. He thinks he hit his head in the fall but there was no loss of consciousness and he sustained no other injuries. Radiographs showed a mildly displaced left ankle trimalleolar fracture and he is being admitted in this setting for consultation with Orthopedic surgery. Currently he has no complaints aside from the fact that he is hungry. Review of Systems Review of Systems: Twelve systems were reviewed. No fever, chills, or sweats. No recent cold or flu symptoms. No known cardiac or pulmonary disease. He saw a level vial marker after his son from heart disease and he had an unremarkable stress test at that time. He does has chronic edema in his lower extremities though that is not new and it is unchanged. No orthopnea or paroxysmal nocturnal dyspnea. He denies exertional chest pain and shortness a breath. No syncope or near syncope. No history of venous thromboembolism. Except as documented, all other systems were reviewed and are negative. [facility] Past Medical History Medical History (Updated 07/05/22 @ 20:26 by Yoselin Harris PA-C) Anxiety Arthritis Benign prostatic hyperplasia Glaucoma Hyperlipidemia Hypertension Kidney stone Skin cancer Surgical History Surgical History (Updated 07/05/22 @ 20:19 by Yoselin Harris PA-C) History of inguinal hernia repair, bilateral History of partial knee replacement Bilateral. History of tonsillectomy Family History Family History Mother , Age 89 Heart problems Arthritis Father , Age 69 Colon Cancer Colon cancer Grandparent , Age 94 Old Age No problems noted. Grandparent , Age 76 Heart Problems No problems noted. Grandparent , Age 72 Heart Problems No problems noted. Grandparent , Age 82 Heart Problems COPD (chronic obstructive pulmonary disease) Son , Age 54 Heart Problems No problems noted. Social History Social History (Updated 07/05/22 @ 20:20 by Yoselin Harris PA-C) Social History: Surrogate medical decision maker: Jeffrey James or Marisa Salvador, children. Code status: Full code. Smoking status: Never smoker Alcohol intake: never Substance use: never Lack of Transportation: No Lack of Food: Never True Current Housing: I Have Housing Concerned About Future Housing: No Difficulty Paying Gas/Electric Bills: No Difficulty Paying for Meds: No Currently Unemployed: No Education: High School Diploma/GED Difficulty w/ Childcare or Family Care: No Additional living arrangements comments: . Lives alone in [place]. No pets. He had 3 children, 1 passed from heart disease. Spiritual care concerns: No Meds Home Medications and Allergies Home Medications Medication Instructions Recorded Confirmed Type amlodipine 10 mg tablet 1 tablet PO HS 12/10/21 07/05/22 History ezetimibe 10 mg tablet 1 tablet PO DAILY 12/10/21 07/05/22 History latanoprost 0.005 % eye drops 1 drp EACH EYE HS 12/10/21 07/05/22 History terazosin 10 mg capsule 10 mg PO HS 12/10/21 07/05/22 History walker #1 ea 02/27/22 07/05/22 Rx finasteride 5 mg tablet 5 mg P
[2022-07-05 14:18] VITALS: BP 140/67; PULSE 67; O2SAT 98
--- NOTE | 2022-07-05 14:55 | ADMGEN ---
This patient, Deven James, was admitted to Medical Room 250-01. Patient/family oriented to hospital policies and general routines including ID bracelet, bed and alarms, visiting hours, pain management, procedures, bathroom and other care routines, personal items, smoking policy, room service/diet, and visiting hours. Information on how to activate the Rapid Response Team has been discussed. Patient/Family are encouraged to report perceived risks to care and to ask questions if they do not understand what they are told or what they should do.
[2022-07-05 15:01] VITALS: BMI 34.4
[2022-07-05 21:16] VITALS: BP 129/60; PULSE 73; RESP 18; TEMP 36.4; O2SAT 94
[2022-07-05] MEDS: LATANOPROST 0.005% OP SOLN 2.5 ML BTL 1 DROP EACH EYE (22:17)
[2022-07-05] MEDS: amLODIPine BESYLATE 5 MG TABLET 10 MG PO (22:17)
[2022-07-05] MEDS: TERAZOSIN HCL 5 MG CAPSULE 10 MG PO (22:18)
[2022-07-05] MEDS: TAMSULOSIN HCL 0.4 MG CAPSULE PO (22:18)
[2022-07-06] VITALS (13 sets, daily range): BP systolic 105–144; BP diastolic 59–80; PULSE 79–93; RESP 12–20; TEMP 36.2–36.6; O2SAT 94–98
[2022-07-06 05:46] LABS: Hematocrit 35.4 % (42.0-52.0); Hemoglobin 11.5 g/dL (14.0-18.0); Mean Corpuscular HGB Conc 32.5 g/dl (32-36); Mean Corpuscular Hemoglobin 31.2 pg (26-34); Mean Corpuscular Volume 95.9 fl (80-100); Mean Platelet Volume 9.9 fl (7.4-10.4); Platelet Count Result 259 k/mm3 (150-375); Red Blood Count 3.69 M/mm3 (4.6-6.20); White Blood Count 7.3 K/mm3 (4.5-10.0)
[2022-07-06 05:58] LABS: Anion Gap 4 mmol/L (8-16); Blood Urea Nitrogen 23 mg/dL (9-20); Calcium 8.2 mg/dL (8.4-10.2); Carbon Dioxide 31 mmol/L (22-30); Chloride 103 mmol/L (98-107); Estimated CRCL calculation 96 ml/min; Estimated Glomerular Filt Rate > 60; Glucose 95 mg/dL (65-110); Magnesium 2.1 mg/dL (1.6-2.3); Potassium 3.5 mmol/L (3.4-5.0); Sodium 138 mmol/L (137-145)
--- NOTE | 2022-07-06 08:46 | PM.CNOR ---
Assessment and Plan Assessment and plan (1) Closed trimalleolar fracture of left ankle: Code(s): S82.852A - Displaced trimalleolar fracture of left lower leg, initial encounter for closed fracture Status: Acute Plan 82-year-old male with a closed trimalleolar fracture of the left ankle after a fall and twisting injury. The fracture site was reduced and he was placed in a stirrup type splint in the ER. On exam today, he is very pleasant and comfortable. I did discuss with him the injury and need for surgical ORIF. He is agreeable to this plan. We will plan on open reduction internal fixation of the left trimalleolar ankle fracture today around noon. Past medical history and home medications reviewed. Nature of the procedure along with risks and complications were discussed with him in detail. He will also have surgical rere so he will need to keep these clean and dry. I did inform him that he will need to be nonweightbearing on the left lower extremity for a minimum of 6 weeks. Will plan to see him in the office in 2 weeks for staple removal and new x-ray. History of Present Illness HPI Consult date: 07/06/22 Consult reason: fracture (Left ankle) Chief complaint: Trimalleolar Fracture Narrative: 82-year-old male admitted with a trimalleolar left ankle fracture. He states he slipped on the ice/snow which caused him to fall and twist his ankle. He was seen in the ER where the fracture was reduced and splinted. Currently doing very well in regards to pain. His ankle is elevated on 2 pillows to help reduce swelling. Denies any numbness in the foot. He denies any knee or hip pain. Review of Systems Review of Systems: All systems reviewed & are unremarkable except as noted in HPI and below Constitutional: Constitutional: Reports as per HPI and Reports no additional constitutional complaints Eyes: Eyes: Reports as per HPI and Reports no additional eye complaints Respiratory: Respiratory: Reports as per HPI and Reports no additional respiratory complaints Musculoskeletal: Musculoskeletal: Reports no additional musculoskeletal complaints and Reports as per HPI Neurologic: Reports as per HPI [facility] Past Medical History Medical History Anxiety Arthritis Benign prostatic hyperplasia Glaucoma Hyperlipidemia Hypertension Kidney stone Skin cancer Surgical History Surgical History History of inguinal hernia repair, bilateral History of partial knee replacement Bilateral. History of tonsillectomy Family History Family History Mother , Age 89 Heart problems Arthritis Father , Age 69 Colon Cancer Colon cancer Grandparent , Age 94 Old Age No problems noted. Grandparent , Age 76 Heart Problems No problems noted. Grandparent , Age 72 Heart Problems No problems noted. Grandparent , Age 82 Heart Problems COPD (chronic obstructive pulmonary disease) Son , Age 54 Heart Problems No problems noted. Social History Social History Social History: Surrogate medical decision maker: Jeffrey James or Marisa Salvador, children. Code status: Full code. Smoking status: Never smoker Alcohol intake: never Substance use: never Lack of Transportation: No Lack of Food: Never True Current Housing: I Have Housing Concerned About Future Housing: No Difficulty Paying Gas/Electric Bills: No Difficulty Paying for Meds: No Currently Unemployed: No Education: High School Diploma/GED Difficulty w/ Childcare or Family Care: No Additional living arrangements comments: . Lives alone in [place]. No pets. He had 3 childre
[2022-07-06] MEDS: TAMSULOSIN HCL 0.4 MG CAPSULE PO ×2 (08:56→21:44)
[2022-07-06] MEDS: EZETIMIBE 10 MG TABLET PO (08:56)
--- NOTE | 2022-07-06 12:06 | WPDANESEPPF ---
Anes - Initial Pre Proc Eval Procedure: Operation Date: 07/06/22 12:00 Proposed Procedures p ORIF Ankle Fracture(Left) - Jhno Farley MD Date/Time: 07/06/22 12:06 Surgeon: Josemanuel Riggins MD Pre Op Diagnosis: Trimalleolar Fracture Patient Data Age: 82 Gender: M Height: 1.78 m Weight: 108.7 kg Last Vital Signs Temp 36.5 C 07/06/22 05:07 Pulse 89 07/06/22 05:07 Resp 18 07/06/22 05:07 BP 140/67 07/06/22 05:07 Pulse Ox 94 07/06/22 05:07 O2 Del Method Room Air 07/05/22 22:10 Allergies Allergy/AdvReac Type Severity Reaction Status Date / Time No Known Allergies Allergy Verified 07/05/22 07:01 Home Medications Medication Instructions Recorded Confirmed Type amlodipine 10 mg tablet 1 tablet PO HS 12/10/21 07/05/22 History ezetimibe 10 mg tablet 1 tablet PO DAILY 12/10/21 07/05/22 History latanoprost 0.005 % eye drops 1 drp EACH EYE HS 12/10/21 07/05/22 History terazosin 10 mg capsule 10 mg PO HS 12/10/21 07/05/22 History walker #1 ea 02/27/22 07/05/22 Rx finasteride 5 mg tablet 5 mg PO 1700 07/05/22 07/05/22 History tamsulosin 0.4 mg capsule 0.4 mg PO Q12H 07/05/22 07/05/22 History Laboratory Tests 07/06/22 07/06/22 07/06/22 05:08 05:08 05:08 WBC 7.3 K/mm3 K/mm3 (4.5-10.0) RBC 3.69 M/mm3 L M/mm3 (4.6-6.20) Hgb 11.5 g/dL L g/dL (14.0-18.0) Hct 35.4 % L % (42.0-52.0) MCV 95.9 fl fl (80-100) MCH 31.2 pg pg (26-34) MCHC 32.5 g/dl g/dl (32-36) RDW 14.0 % % (11.5-14.5) Plt Count 259 k/mm3 k/mm3 (150-375) MPV 9.9 fl fl (7.4-10.4) Sodium 138 mmol/L mmol/L (137-145) Potassium 3.5 mmol/L mmol/L (3.4-5.0) Chloride 103 mmol/L mmol/L (98-107) Carbon Dioxide 31 mmol/L H mmol/L (22-30) Anion Gap 4 mmol/L L mmol/L (8-16) BUN 23 mg/dL H mg/dL (9-20) Creatinine 0.60 mg/dL L mg/dL (0.7-1.3) Estim Creat Clear Calc 96 ml/min ml/min Estimated GFR > 60 (59 - ) Glucose 95 mg/dL mg/dL (65-110) Calcium 8.2 mg/dL L mg/dL (8.4-10.2) Magnesium 2.1 mg/dL mg/dL (1.6-2.3) TSH (Reflex) 2.070 uIU/mL uIU/mL (0.465-4.68) Patient hx anesthesia problems: none Family hx anesthesia problems: none Results Review: All pre-operative results and documents have been reviewed as part of the pre-operative evaluation. [facility] Past Medical History Medical History Anxiety Arthritis Benign prostatic hyperplasia Glaucoma Hyperlipidemia Hypertension Kidney stone Skin cancer Surgical History Surgical History History of inguinal hernia repair, bilateral History of partial knee replacement Bilateral. History of tonsillectomy Family History Family History Mother , Age 89 Heart problems Arthritis Father , Age 69 Colon Cancer Colon cancer Grandparent , Age 94 Old Age No problems noted. Grandparent , Age 76 Heart Problems No problems noted. Grandparent , Age 72 Heart Problems No problems noted. Grandparent , Age 82 Heart Problems COPD (chronic obstructive pulmonary disease) Son , Age 54 Heart Problems No problems noted. Social History Social History Social History: Surrogate medical decision maker: Jeffrey James or Marisa Salvador, children. Code status: Full code. Smoking status: Never smoker Alcohol intake: never Substance use: never Lack of Transportation: No Lack of Food: Never True Current Housing: I Have Housing Concerned About Future Housing
--- NOTE | 2022-07-06 12:13 | WPDHPUPDATE1 ---
History and Physical Update Update Date/Time: 07/06/22 12:13 History and Physical has been reviewed, including an updated exam of the patient. There are NO changes in the patient's condition. Risks, benefits, and alternatives have been discussed and questions answered. Patient agrees to proceed with procedure.
[2022-07-06] MEDS: ceFAZolin 2 GM/D5W 50 ML 2 GM/50 ML BAG IVPB ×2 (12:45→20:51)
[2022-07-06] MEDS: LACTATED RINGERS 1,000 ML 30 ML IV CONT (12:45)
--- NOTE | 2022-07-06 13:13 | PM.IMPN ---
Progress Note: A&P Assessment and Plan (1) Closed trimalleolar fracture of left ankle: Code(s): S82.852A - Displaced trimalleolar fracture of left lower leg, initial encounter for closed fracture Status: Acute Assessment and Plan: Secondary to mechanical fall on the ice. Planning for surgical repair this afternoon. Appreciate orthopedic surgery consultation. Analgesics available as needed. Patient will need PT/OT eval postoperatively. (2) Abnormal EKG: Code(s): R94.31 - Abnormal electrocardiogram [ECG] [EKG] Status: Acute Assessment and Plan: EKG showed probable old anterior [place]. Echocardiogram is pending. Patient is asymptomatic, no chest pain (3) Left upper lobe pulmonary nodule: Code(s): R91.1 - Solitary pulmonary nodule Status: Acute Assessment and Plan: 1 centimeter nodular opacity projecting over the left upper lung zone, could be calcified or noncalcified pulmonary nodule or potentially costochondral calcification. Per radiology consider follow-up low-dose noncontrast chest CT. This can be accomplished as an outpatient following ankle repair (4) Lower extremity edema: Code(s): R60.0 - Localized edema Status: Acute Assessment and Plan: Per patient report this is been an ongoing issue for years. Venous Doppler ultrasounds ordered to rule out DVT, awaiting completion (5) Hypertension: Qualifiers: Hypertension type: essential hypertension Qualified Code(s): I10 - Essential (primary) hypertension Code(s): I10 - Essential (primary) hypertension Status: Chronic Assessment and Plan: Blood pressures remaining stable. Last BP 140/67. Continue amlodipine. Monitor BP trends (6) Benign prostatic hyperplasia: Code(s): N40.0 - Benign prostatic hyperplasia without lower urinary tract symptoms Status: Chronic Assessment and Plan: Continue tamsulosin and terazosin. Subjective Date/time seen: 07/06/22 13:13 Interval history: Date of service: 07/06/2022 Deven James is an 82-year-old male with history of hypertension, hyperlipidemia, BPH, kidney stones, glaucoma, and anxiety who is seen in follow up for left ankle fracture. He is doing well today. He is awaiting surgery this afternoon. Currently he has 2/10 pain in his ankle. He has a single elevated. He has not been out of bed yet today. He denies shortness of breath, cough, chest pain, congestion, nausea, vomiting, fever, or chills. Last bowel movement was 2 days ago. No urinary symptoms. Review of Systems Review of Systems: All systems reviewed & are unremarkable except as noted in HPI and below Exam Narrative: General: well-nourished, well-appearing 82-year-old male, sitting up in bed, comfortable, NARD Neuro: awake, alert and oriented x4, speech clear, no focal neuro deficits noted HEENMT: normocephalic, atraumatic, EOMI, sclerae anicteric Respiratory: clear to auscultation bilaterally, nonlabored breathing Cardio: regular rate, regular rhythm with S1-S2 Abdomen: nondistended, normoactive bowel sounds, soft, nontender to palpation Extremities: left ankle elevated on pillow, covered with splint, left toes visible, pt able to wiggle toes, brisk capillary refill noted. RLE no edema, erythema, or tenderness to palpation Skin: no rashes or lesions, warm and dry Psych: appropriate mood and affect, judgment and insight intact Objective Data Vital Signs Vital Signs: Vital Signs - 24 hr 07/05/22 14:18 07/05/22 21:16 07/05/22 22:10 Temperature 97.6 F Pulse Rate 67 73 Respiratory Rate 18 Blood Pressure 140/67 129/60 Pulse Oximetry 98 94 Oxygen Delivery Room Air 07/06/22 05:07 Temperature 97.7 F Pulse Rate 89 Respiratory Rate 18 Blood Pressure 140/67 Pulse Oximetry 94 Oxygen Delivery Intake/Output Intake/Output: Intake & Output 07/03/22 07/04/22 07/05/22 07/06/22 23:59 23:59 23:59
[2022-07-06] MEDS: BUPIVACAINE HCL 0.5% PF 30 ML VIAL INFILTRATE (13:20)
--- NOTE | 2022-07-06 14:13 | W.PM.PROC2 ---
Procedure Note - Detailed Date of Procedure 07/06/22 Pre-op Diagnosis Left Trimalleolar Fracture Post-op Diagnosis Same Procedure Performed ORIF left ankle Surgeon Jhon Farley MD Artificial Breeding Technician Natalie S Anesthesia General Description of Procedure The patient was identified and proper site identified. He was taken to the operating room and transferred to the OR table placing him supine taking care to pad his torso and extremities. After general anesthetic induction and intubation, a nonsterile tourniquet was placed high on the left thigh. Splint was removed from his left lower extremity. There was quite a bit of ecchymosis particularly medially about the ankle. No breaks in the skin noted. The left lower extremity was prepped and draped in usual sterile fashion. Extremities exsanguinated and tourniquet inflated to 300 millimeters of mercury remaining up for about 40 minutes. Longitudinal incision was made over the distal fibula. Subcutaneous tissue sharply dissected full-thickness down to the fracture site. Fracture was identified, cleared of debris and then able to be reduced anatomically. The reduction was assessed fluoroscopically. Talus was well-positioned in the mortise a five hole lateral locking hook plate was contoured to fit the distal fibula. The plate was secured with 3.5 screws proximally and 2.7 screws distally. These were placed under fluoroscopic assistance to ensure that the joint was not penetrated. Reduction and hardware placement were assessed fluoroscopically and noted to be satisfactory. The lateral wound was irrigated with sterile saline. Deeper layers of the subcu reapproximated with 3-0 Monocryl. Skin reapproximated with 2-0 Stratafix and rere. Sterile dressing was applied. Tourniquet was released. A well-padded stirrup type ankle splint was applied with the ankle in a neutral position. He tolerated the procedure well. He was awakened, extubated and taken to recovery area in stable condition. There were no known intraoperative complications. Estimated blood loss was 100 milliliters, much of which was fracture hematoma. He received perioperative antibiotics. Estimated Blood Loss -100.0 Tourniquet Time 40 Urine Output 300 Drains No Packing No Pathology None sent Complications No immediate complications Condition Stable Disposition PACU [facility] Billing Surgery - Charge Forward: Surgery Billing ([id number], [id number])
[2022-07-06] MEDS: fentaNYL CITRATE INJ (*CRX) 100 MCG/2 ML VIAL 25 MCG IV PUSH ×2 (14:45→14:48)
[2022-07-06] MEDS: FINASTERIDE 5 MG TABLET PO (17:38)
[2022-07-06] MEDS: LATANOPROST 0.005% OP SOLN 2.5 ML BTL 1 DROP EACH EYE (20:48)
[2022-07-06] MEDS: SENNA/DOCUSATE SODIUM TABLET 2 TAB PO (20:48)
[2022-07-06] MEDS: amLODIPine BESYLATE 5 MG TABLET 10 MG PO (20:49)
[2022-07-06] MEDS: FAMOTIDINE 20 MG TABLET PO (20:49)
[2022-07-06] MEDS: TERAZOSIN HCL 5 MG CAPSULE 10 MG PO (20:49)
[2022-07-07 03:32] VITALS: BP 135/69; PULSE 84; RESP 18; TEMP 36.3; O2SAT 95
[2022-07-07] MEDS: ceFAZolin 2 GM/D5W 50 ML 2 GM/50 ML BAG IVPB ×2 (03:56→12:51)
[2022-07-07 06:03] LABS: Hematocrit 33.5 % (42.0-52.0); Hemoglobin 10.9 g/dL (14.0-18.0); Mean Corpuscular HGB Conc 32.5 g/dl (32-36); Mean Corpuscular Hemoglobin 31.3 pg (26-34); Mean Corpuscular Volume 96.3 fl (80-100); Mean Platelet Volume 9.8 fl (7.4-10.4); Platelet Count Result 227 k/mm3 (150-375); Red Blood Count 3.48 M/mm3 (4.6-6.20); Red Cell Distribution Width 13.4 % (11.5-14.5); White Blood Count 9.3 K/mm3 (4.5-10.0)
[2022-07-07 06:15] LABS: Anion Gap 6 mmol/L (8-16); Blood Urea Nitrogen 15 mg/dL (9-20); Calcium 7.9 mg/dL (8.4-10.2); Carbon Dioxide 27 mmol/L (22-30); Chloride 107 mmol/L (98-107); Estimated CRCL calculation 96 ml/min; Estimated Glomerular Filt Rate > 60; Glucose 177 mg/dL (65-110); Potassium 3.7 mmol/L (3.4-5.0); Sodium 140 mmol/L (137-145)
[2022-07-07] MEDS: TAMSULOSIN HCL 0.4 MG CAPSULE PO ×2 (08:33→20:48)
[2022-07-07] MEDS: FAMOTIDINE 20 MG TABLET PO ×2 (08:34→20:48)
[2022-07-07] MEDS: polyethylene glycoL 3350 17 GM POWD.PACK PO (08:34)
[2022-07-07] MEDS: EZETIMIBE 10 MG TABLET PO (08:34)
[2022-07-07] MEDS: ASPIRIN 325 MG ENTERIC TABLET PO (08:34)
[2022-07-07 08:59] VITALS: BP 115/59; PULSE 89; RESP 18; TEMP 36.1; O2SAT 97
[2022-07-07] MEDS: SENNA/DOCUSATE SODIUM TABLET 2 TAB PO (09:18)
--- NOTE | 2022-07-07 13:03 | PM.IMPN ---
Progress Note: A&P Assessment and Plan (1) Closed trimalleolar fracture of left ankle: Code(s): S82.852A - Displaced trimalleolar fracture of left lower leg, initial encounter for closed fracture Status: Acute Assessment and Plan: Secondary to mechanical fall on the ice. Underwent ORIF left ankle on 07/06/2022. Tolerated this procedure well. Continue analgesics as needed. Continue aspirin 325 mg daily for DVT prophylaxis per Orthopedic surgery recommendations. Appreciate PT/OT eval. Patient will likely require SNF placement, awaiting availability (2) Abnormal EKG: Code(s): R94.31 - Abnormal electrocardiogram [ECG] [EKG] Status: Acute Assessment and Plan: EKG showed probable old anterior CT. Echocardiogram completed for further evaluation, awaiting report. Patient is asymptomatic, no chest pain (3) Left upper lobe pulmonary nodule: Code(s): R91.1 - Solitary pulmonary nodule Status: Acute Assessment and Plan: 1 centimeter nodular opacity projecting over the left upper lung zone, could be calcified or noncalcified pulmonary nodule or potentially costochondral calcification. Per radiology consider follow-up low-dose noncontrast chest CT. This can be accomplished as an outpatient following ankle repair (4) Lower extremity edema: Code(s): R60.0 - Localized edema Status: Acute Assessment and Plan: Per patient report this is been an ongoing issue for years. Venous Doppler ultrasounds ordered to rule out DVT, awaiting completion. May need to defer LLE Doppler with splint in place (5) Hypertension: Qualifiers: Hypertension type: essential hypertension Qualified Code(s): I10 - Essential (primary) hypertension Code(s): I10 - Essential (primary) hypertension Status: Chronic Assessment and Plan: Blood pressures remaining stable. Continue amlodipine. Monitor BP trends (6) Benign prostatic hyperplasia: Code(s): N40.0 - Benign prostatic hyperplasia without lower urinary tract symptoms Status: Chronic Assessment and Plan: Continue tamsulosin and terazosin. Monitor urine output Subjective Date/time seen: 07/07/22 13:03 Interval history: Date of service: 07/07/2022 Deven James is an 82-year-old male with history of hypertension, hyperlipidemia, BPH, kidney stones, glaucoma, and anxiety who is seen in follow up for left ankle fracture. He underwent ORIF left ankle yesterday and tolerated the procedure well. He has no pain at this time. He was able to participate in therapies today and got up the bed to the chair. He does feel constipated today. He is passing flatus. Denies abdominal pain or cramping. Additionally, complains of chronic urinary symptoms including nocturia, decreased stream, and dribbling. This is unchanged. He denies shortness of breath, cough, chest pain, fever or chills. He is tolerating his diet. Review of Systems Review of Systems: All systems reviewed & are unremarkable except as noted in HPI and below Exam Narrative: General: well-nourished, well-appearing 82-year-old male, sitting up in bed, comfortable, NARD Neuro: awake, alert and oriented x4, speech clear, no focal neuro deficits noted HEENMT: normocephalic, atraumatic, EOMI, sclerae anicteric Respiratory: clear to auscultation bilaterally, nonlabored breathing Cardio: regular rate, regular rhythm with S1-S2 Abdomen: nondistended, normoactive bowel sounds, soft, nontender to palpation Extremities: left ankle elevated, covered with splint, left toes visible and pt able to wiggle toes, brisk capillary refill noted, unable to palpate DP pulse due to splint. RLE no edema, erythema, or tenderness to palpation Skin: no rashes or lesions, warm and dry Psych: appropriate mood and affect, judgment and insight intact Objective Data Vital Signs Vital Signs: Vital Signs - 24 hr 07/06/22 14:03 07/06/22
--- NOTE | 2022-07-07 15:14 | PM.PNORT ---
Progress Note: A&P Assessment and Plan (1) Closed trimalleolar fracture of left ankle: Code(s): S82.852A - Displaced trimalleolar fracture of left lower leg, initial encounter for closed fracture Status: Acute Plan 82-year-old male postop day 1 after ORIF of left trimalleolar ankle fracture. He will be nonweightbearing on the left lower extremity for 6 weeks. Since he is using the henrique stedy, plan discharge to rehab facility for help with ADLs. He will be seen in the office in 2 weeks for removal of the splint and rere. Plan for new x-rays at that time. He will also be placed on aspirin 325 mg EC for DVT prophylaxis. Subjective Subjective Date/Time Seen: 07/07/22 15:14 Post Op day: 1 Principal diagnosis: S/p ORIF left trimalleolar ankle fracture Interval history: 82-year-old male postop day 1 after ORIF left ankle fracture. Overall doing very well and relatively pain-free. He is using the henrique stedy for transfers. He is aware of his nonweightbearing status for 6 weeks of the left ankle. Review of Systems Review of Systems: All systems reviewed & are unremarkable except as noted in HPI and below Constitutional: Constitutional: Reports as per HPI and Reports no additional constitutional complaints Musculoskeletal: Musculoskeletal: Reports no additional musculoskeletal complaints and Reports as per HPI Exam Const: General: comfortable and no acute distress Resp: Effort & Inspection: normal respiratory effort GI: Inspection: non-distended Skin: General skin exam: normal color and no rashes or lesions noted Neuro: Sensory Exam: normal sensation Extrem: Other: Exam of the left ankle shows intact stirrup type splint of the left ankle. No drainage appreciated. No significant swelling of the toes or foot. No numbness or tingling. Capillary refill less than 2 seconds. Neurovascular status left lower extremity is intact. Psych: Mental Status: mental status grossly normal Radiology Reports: Comments: EXAMINATION: XR surgery orthopedic DATE: 07/06/2022 13:00 TRANSACTION ADVISORY SERVICES MANAGER INDICATION: LEFT FIBULAR FX ORIF . TECHNIQUE: 3 fluoroscopic images of the left ankle were obtained during left fibular fracture ORIF performed by the surgeon. I was not present in the operating room. Fluoroscopy exposure time was 14 seconds. Air Kerma 0.7903 mGy. DAP 0.0157 mGym2. COMPARISON: 07/05/2022 FINDINGS: Screw and plate fixation of the distal left fibula into near-anatomic alignment. IMPRESSION: Fluoroscopic documentation of left fibular fracture ORIF. Please refer to the operative note for complete procedural details . Ankle X-Ray 07/05/22 Objective Data Vital Signs Vital Signs: Vital Signs - 24 hr 07/06/22 15:44 07/06/22 16:44 07/06/22 20:41 Temperature 97.3 F L 97.9 F 97.8 F Pulse Rate 84 88 93 Respiratory Rate 18 18 20 Blood Pressure 135/67 122/65 125/77 Pulse Oximetry 96 97 96 Oxygen Delivery Oxygen Flow Rate 07/06/22 20:00 07/06/22 23:55 07/07/22 03:32 Temperature 97.5 F L 97.4 F L Pulse Rate 93 79 84 Respiratory Rate 20 20 18 Blood Pressure 124/59 L 135/69 Pulse Oximetry 96 96 95 Oxygen Delivery Nasal Cannula Oxygen Flow Rate 2 07/07/22 08:05 07/07/22 08:59 07/07/22 08:45 Temperature 97.0 F L Pulse Rate 89 Respiratory Rate 18 Blood Pressure 115/59 L Pulse Oximetry 97 Oxygen Delivery Room Air Room Air Oxygen Flow Rate Intake/Output Intake/Output: Intake & Output 07/04/22 07/05/22 07/06/22 07/07/22 23:59 23:59 23:59 23:59 Intake Total 1220 680 Output Total 1600 300 Balance -380 380 Meds/Results Medications: Active Medications Generic Name Dose Route Start Last Admin Trade Name Freq PRN Reason Stop Dose Admin Acetaminophen 650 mg 07/06/22 14:59 Acetaminophen 325 Mg Tablet PO Q6H PRN Pain Rated 1-3 Hydrocodone Bitart/Acetaminophen 1 tab 07/06/22 14:59 Hydrocodone/Acetaminophen (*Crx) 5-325 Mg Tablet
[2022-07-07 15:15] VITALS: BP 117/58; PULSE 73; RESP 18; TEMP 36.1; O2SAT 96
[2022-07-07] MEDS: FINASTERIDE 5 MG TABLET PO (16:56)
[2022-07-07 18:42] VITALS: BP 130/71; PULSE 88; RESP 17; TEMP 36.2; O2SAT 97
--- NOTE | 2022-07-07 20:31 | ECHO_ITS ---
Patient Info Name: Deven James Age: 82 years : 1940 Gender: Male Ht: 70 in Wt: 239 lbs BSA: 2.35 m2 HR: 89 bpm BP: 140 / 67 mmHg Heart Rhythm: Sinus Rhythm Technical Quality: Fair Exam Date: 07/07/2022 7:40 AM Exam Location: [facility] Patient Status: Inpatient Admit Date: 07/06/2022 Staff Ordering Physician: Yoselin Harris PA-C Pilot Control Operator Helper: Misa Wheatley RDCS Attending Provider: Josemanuel Riggins MD Referring Physician: Kimberly ENRIQUEZ; Exam Type: CA echo doppler color flow Study Info Indications - Abnormal ekg, edema, hypertension Complete two-dimensional, color flow and Doppler transthoracic echocardiogram is performed. Summary 1. Complete two-dimensional, color flow and Doppler transthoracic echocardiogram is performed. 2. Left ventricular chamber dimension is normal. 3. Left ventricular systolic function is normal, estimated at 65-70%. 4. There is mildly increased left ventricular wall thickness. 5. The left ventricular diastolic function is grade I diastolic dysfunction. 6. There is no aortic valve stenosis. 7. There is trace mitral valve regurgitation. 8. There is trace tricuspid valve regurgitation. 9. No pulmonary hypertension, estimated pulmonary arterial systolic pressure is 24 mmHg. Left Ventricle Left ventricular chamber dimension is normal. Left ventricular systolic function is normal, estimated at 65-70%. There is mildly increased left ventricular wall thickness. The left ventricular diastolic function is grade I diastolic dysfunction. Right Ventricle Right ventricular chamber dimension is normal. Right ventricular systolic function is normal. Left Atria Left atrial chamber dimension is normal. Right Atria Right atrial chamber dimension is normal. Aortic Valve The aortic valve is not well visualized. There is no aortic valve stenosis. There is no aortic valve regurgitation. Pulmonic Valve The pulmonic valve is not well visualized. Mitral Valve The mitral valve has normal leaflets. There is trace mitral valve regurgitation. The mitral valve annulus is mildly calcified. Tricuspid Valve The tricuspid valve leaflets are normal. There is trace tricuspid valve regurgitation. No pulmonary hypertension, estimated pulmonary arterial systolic pressure is 24 mmHg. Pericardium/Pleural The pericardium appears normal. There is small pericardial effusion. Inferior Vena Cava Normal inferior vena cava with >50% collapse upon inspiration consistent with normal right atrial pressure, 5 mmHg. Aorta The aortic root size at the sinus of Valsalva is normal. There is mild aortic atherosclerosis. Left Ventricular Outflow Tract Name Value Normal LVOT 2D LVOT Diameter 2.0 cm LVOT Doppler LVOT Peak Gradient 5 mmHg LVOT Mean Gradient 3 mmHg LVOT VTI 24 cm LVOT VTI/AV VTI Ratio 0.7 LVOT Stroke Volume 76 ml LVOT CO 5.9 l/min LVOT CI
[2022-07-07] MEDS: TERAZOSIN HCL 5 MG CAPSULE 10 MG PO (20:48)
[2022-07-07] MEDS: amLODIPine BESYLATE 5 MG TABLET 10 MG PO (20:48)
[2022-07-07] MEDS: LATANOPROST 0.005% OP SOLN 2.5 ML BTL 1 DROP EACH EYE (20:48)
[2022-07-07 22:02] VITALS: BP 132/70; PULSE 76; RESP 20; TEMP 36.3; O2SAT 96
[2022-07-08 05:01] VITALS: BP 139/70; PULSE 97; RESP 20; TEMP 36.4; O2SAT 94
[2022-07-08 05:57] LABS: Mean Corpuscular HGB Conc 32.4 g/dl (32-36); Mean Corpuscular Hemoglobin 30.6 pg (26-34); Mean Corpuscular Volume 94.7 fl (80-100); Mean Platelet Volume 9.9 fl (7.4-10.4); Platelet Count Result 261 k/mm3 (150-375); Red Blood Count 3.59 M/mm3 (4.6-6.20); Red Cell Distribution Width 13.3 % (11.5-14.5); White Blood Count 9.5 K/mm3 (4.5-10.0)
[2022-07-08 06:08] LABS: Anion Gap 0 mmol/L (8-16); Blood Urea Nitrogen 15 mg/dL (9-20); Calcium 8.1 mg/dL (8.4-10.2); Carbon Dioxide 34 mmol/L (22-30); Chloride 105 mmol/L (98-107); Estimated CRCL calculation 96 ml/min; Estimated Glomerular Filt Rate > 60; Glucose 104 mg/dL (65-110); Potassium 3.5 mmol/L (3.4-5.0); Sodium 139 mmol/L (137-145)
--- NOTE | 2022-07-08 07:57 | P.PNIM_ITS ---
Progress Note: A&P Assessment and Plan (1) Closed trimalleolar fracture of left ankle: Code(s): S82.852A - Displaced trimalleolar fracture of left lower leg, initial encounter for closed fracture Status: Acute Assessment and Plan: * Secondary to mechanical fall on the ice. * Underwent ORIF left ankle on 07/06/2022. * Continue analgesics as needed. * Continue aspirin 325 mg daily for DVT prophylaxis per Orthopedic surgery recommendations. * Appreciate PT/OT eval. * likely require SNF placement, awaiting availability (2) Abnormal EKG: Code(s): R94.31 - Abnormal electrocardiogram [ECG] [EKG] Status: Acute Assessment and Plan: * EKG showed probable old anterior DC. * Echocardiogram EF of 65-70% with grade 1 diastolic dysfunction * Patient is asymptomatic, no chest pain (3) Left upper lobe pulmonary nodule: Code(s): R91.1 - Solitary pulmonary nodule Status: Acute Assessment and Plan: * 1 centimeter nodular opacity projecting over the left upper lung zone, could be calcified or noncalcified pulmonary nodule or potentially costochondral calcification. * Consider follow-up low-dose noncontrast chest CT * Outpatient following ankle repair (4) Lower extremity edema: Code(s): R60.0 - Localized edema Status: Acute Assessment and Plan: * Per patient report this is been an ongoing issue for years. * Venous Doppler ultrasounds no DVT noted * trend edema * Consider rajwinder jaimes (5) Hypertension: Qualifiers: Hypertension type: essential hypertension Qualified Code(s): I10 - Essential (primary) hypertension Code(s): I10 - Essential (primary) hypertension Status: Chronic Assessment and Plan: * Current BP 139/70 * Continue home medications amlodipine, terazosin 10mg PO * Trend BP * Adjust therapy as indicated (6) Benign prostatic hyperplasia: Code(s): N40.0 - Benign prostatic hyperplasia without lower urinary tract symptoms Status: Chronic Assessment and Plan: * Continue tamsulosin and terazosin. * Trend urine output * Bladder scans PRN Time Spent With Patient Time with patient: Greater than 35 minutes Subjective Date/time seen: 07/08/22 07:57 Interval history: 07/08/22 07/07/2022 Deven James is an 82-year-old male with history of hypertension, hyperlipidemia, BPH, kidney stones, glaucoma, and anxiety who is seen in follow up for left ankle fracture.? He underwent ORIF left ankle yesterday and tolerated the procedure well.? He has no pain at this time.? He was able to participate in therapies today and got up the bed to the chair.? He does feel constipated today.? He is passing flatus.? Denies abdominal pain or cramping.? Additionally, complains of chronic urinary symptoms including nocturia, decreased stream, and dribbling.? This is unchanged.? He denies shortness of breath, cough, chest pain, fever or chills.? He is tolerating his diet. 07/06/2022 Deven James is an 82-year-old male with history of hypertension, hyperlipidemia, BPH, kidney stones, glaucoma, and anxiety who is seen in follow up for left ankle fracture.? He is doing well today.? He is awaiting surgery this afternoon.? Currently he has 2/10 pain in his ankle.? He has a single elevated.? He has not been out
--- NOTE | 2022-07-08 07:57 | PM.IMPN ---
Progress Note: A&P Assessment and Plan (1) Closed trimalleolar fracture of left ankle: Code(s): S82.852A - Displaced trimalleolar fracture of left lower leg, initial encounter for closed fracture Status: Acute Assessment and Plan: Secondary to mechanical fall on the ice. Underwent ORIF left ankle on 07/06/2022. Continue analgesics as needed. Continue aspirin 325 mg daily for DVT prophylaxis per Orthopedic surgery recommendations. Appreciate PT/OT eval. likely require SNF placement, awaiting availability (2) Abnormal EKG: Code(s): R94.31 - Abnormal electrocardiogram [ECG] [EKG] Status: Acute Assessment and Plan: EKG showed probable old anterior SD. Echocardiogram EF of 65-70% with grade 1 diastolic dysfunction Patient is asymptomatic, no chest pain (3) Left upper lobe pulmonary nodule: Code(s): R91.1 - Solitary pulmonary nodule Status: Acute Assessment and Plan: 1 centimeter nodular opacity projecting over the left upper lung zone, could be calcified or noncalcified pulmonary nodule or potentially costochondral calcification. Consider follow-up low-dose noncontrast chest CT Outpatient following ankle repair (4) Lower extremity edema: Code(s): R60.0 - Localized edema Status: Acute Assessment and Plan: Per patient report this is been an ongoing issue for years. Venous Doppler ultrasounds no DVT noted trend edema Consider rajwinder jaimes (5) Hypertension: Qualifiers: Hypertension type: essential hypertension Qualified Code(s): I10 - Essential (primary) hypertension Code(s): I10 - Essential (primary) hypertension Status: Chronic Assessment and Plan: Current BP 139/70 Continue home medications amlodipine, terazosin 10mg PO Trend BP Adjust therapy as indicated (6) Benign prostatic hyperplasia: Code(s): N40.0 - Benign prostatic hyperplasia without lower urinary tract symptoms Status: Chronic Assessment and Plan: Continue tamsulosin and terazosin. Trend urine output Bladder scans PRN Time Spent With Patient Time with patient: Greater than 35 minutes Subjective Date/time seen: 07/08/22 07:57 Interval history: 07/08/22 07/07/2022 Deven James is an 82-year-old male with history of hypertension, hyperlipidemia, BPH, kidney stones, glaucoma, and anxiety who is seen in follow up for left ankle fracture.? He underwent ORIF left ankle yesterday and tolerated the procedure well.? He has no pain at this time.? He was able to participate in therapies today and got up the bed to the chair.? He does feel constipated today.? He is passing flatus.? Denies abdominal pain or cramping.? Additionally, complains of chronic urinary symptoms including nocturia, decreased stream, and dribbling.? This is unchanged.? He denies shortness of breath, cough, chest pain, fever or chills.? He is tolerating his diet. 07/06/2022 Deven James is an 82-year-old male with history of hypertension, hyperlipidemia, BPH, kidney stones, glaucoma, and anxiety who is seen in follow up for left ankle fracture.? He is doing well today.? He is awaiting surgery this afternoon.? Currently he has 2/10 pain in his ankle.? He has a single elevated.? He has not been out of bed yet today.? He denies shortness of breath, cough, chest pain, congestion, nausea, vomiting, fever, or chills.? Last bowel movement was 2 days ago.? No urinary symptoms. 07/05/22? 13:00 This is a very pleasant 82-year-old male with history of hypertension, dyslipidemia, benign prostatic hyperplasia, and glaucoma who presented to the emergency department for evaluation of a left ankle injury. Yesterday he slipped on the ice, twisted his left ankle, and fell to the ground. He had immediate pain in the left ankle and could not get himself up. He came to t
[2022-07-08] MEDS: ASPIRIN 325 MG ENTERIC TABLET PO (08:20)
[2022-07-08] MEDS: FAMOTIDINE 20 MG TABLET PO (08:20)
[2022-07-08] MEDS: EZETIMIBE 10 MG TABLET PO (08:20)
[2022-07-08] MEDS: TAMSULOSIN HCL 0.4 MG CAPSULE PO (08:20)
[2022-07-08] MEDS: polyethylene glycoL 3350 17 GM POWD.PACK PO (08:20)
[2022-07-08] MEDS: SENNA/DOCUSATE SODIUM TABLET 2 TAB PO (08:25)
[2022-07-08 09:47] VITALS: BP 116/59; PULSE 91; RESP 16; TEMP 36.6; O2SAT 96
--- NOTE | 2022-07-08 11:00 | PM.DS ---
DS: Admitting Diagnosis Discharge Date 07/08/22 1100 Admitting Diagnosis Fracture of the left ankle DS: Discharge Diagnosis Discharge Diagnosis (1) Closed trimalleolar fracture of left ankle: Code(s): S82.852A - Displaced trimalleolar fracture of left lower leg, initial encounter for closed fracture Status: Acute Assessment and Plan: Secondary to mechanical fall on the ice. Underwent ORIF left ankle on 07/06/2022. Continue analgesics as needed. Continue aspirin 325 mg daily for DVT prophylaxis per Orthopedic surgery recommendations. Appreciate PT/OT eval. 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 Echocardiogram EF of 65-70% with grade 1 diastolic dysfunction Patient is asymptomatic, no chest pain (3) Left upper lobe pulmonary nodule: Code(s): R91.1 - Solitary pulmonary nodule Status: Acute Assessment and Plan: 1 centimeter nodular opacity projecting over the left upper lung zone, could be calcified or noncalcified pulmonary nodule or potentially costochondral calcification. Consider follow-up low-dose noncontrast chest CT Outpatient following ankle repair (4) Lower extremity edema: Code(s): R60.0 - Localized edema Status: Acute Assessment and Plan: Per patient report this is been an ongoing issue for years. Venous Doppler ultrasounds no DVT noted trend edema Consider rajwinder jaimes (5) Hypertension: Qualifiers: Hypertension type: essential hypertension Qualified Code(s): I10 - Essential (primary) hypertension Code(s): I10 - Essential (primary) hypertension Status: Chronic Assessment and Plan: Current BP 139/70 Continue home medications amlodipine, terazosin 10mg PO Trend BP Adjust therapy as indicated (6) Benign prostatic hyperplasia: Code(s): N40.0 - Benign prostatic hyperplasia without lower urinary tract symptoms Status: Chronic Assessment and Plan: Continue tamsulosin and terazosin. Trend urine output Bladder scans PRN DS: Summary Hospital Course Hospital Course: Patient is an 82-year-old male with a past medical history of hypertension, hyperlipidemia, BPH, kidney stones, glaucoma, anxiety who presented after an injury to the left ankle. Patient noted to be walking and slipped on some ice. Upon arrival to the ED the left ankle did show displacement with fracture. Orthopedics was consulted and patient went for repair in the OR. It was also noted patient did have abnormal EKG and echo was performed however did not show any further findings. There is an upper lobe nodule that was noted on the CT and follow-up is needed outpatient. Venous Dopplers were performed and showed no DVT. Patient did exhibit lower extremity edema however does not seem to be any deficit at this time. Blood pressures have been stable throughout the entire visit and patient has been able to urinate on his own. He currently is stable for discharge for vital signs and labs. Patient is feeling okay and denies any chest pain, shortness a breath, nausea, vomiting, diarrhea, constipation, weakness or fatigue. Patient is being discharged [facility] at this time. Status at Discharge Functional status at discharge: uses cane/walker Overall status at discharge: patient is progressing back to baseline Time Spent with Patient Time attestation: Total time spent providing and/or coordinating discharge services: 42 minutes Time spent: Greater than 30 minutes Specific discharge activities: Diagnostic testing, chart review, developing a treatment plan, education, care coordination documentation, physical exam, result review Exam Narrative: General:
--- NOTE | 2022-07-08 11:00 | P.DS_ITS ---
DS: Admitting Diagnosis Discharge Date 07/08/22 1100 Admitting Diagnosis Fracture of the left ankle DS: Discharge Diagnosis Discharge Diagnosis (1) Closed trimalleolar fracture of left ankle: Code(s): S82.852A - Displaced trimalleolar fracture of left lower leg, initial encounter for closed fracture Status: Acute Assessment and Plan: * Secondary to mechanical fall on the ice. * Underwent ORIF left ankle on 07/06/2022. * Continue analgesics as needed. * Continue aspirin 325 mg daily for DVT prophylaxis per Orthopedic surgery recommendations. * Appreciate PT/OT eval. * likely require SNF placement, awaiting availability (2) Abnormal EKG: Code(s): R94.31 - Abnormal electrocardiogram [ECG] [EKG] Status: Acute Assessment and Plan: * EKG showed probable old anterior DC. * Echocardiogram EF of 65-70% with grade 1 diastolic dysfunction * Patient is asymptomatic, no chest pain (3) Left upper lobe pulmonary nodule: Code(s): R91.1 - Solitary pulmonary nodule Status: Acute Assessment and Plan: * 1 centimeter nodular opacity projecting over the left upper lung zone, could be calcified or noncalcified pulmonary nodule or potentially costochondral calcification. * Consider follow-up low-dose noncontrast chest CT * Outpatient following ankle repair (4) Lower extremity edema: Code(s): R60.0 - Localized edema Status: Acute Assessment and Plan: * Per patient report this is been an ongoing issue for years. * Venous Doppler ultrasounds no DVT noted * trend edema * Consider rajwinder jaimes (5) Hypertension: Qualifiers: Hypertension type: essential hypertension Qualified Code(s): I10 - Essential (primary) hypertension Code(s): I10 - Essential (primary) hypertension Status: Chronic Assessment and Plan: * Current BP 139/70 * Continue home medications amlodipine, terazosin 10mg PO * Trend BP * Adjust therapy as indicated (6) Benign prostatic hyperplasia: Code(s): N40.0 - Benign prostatic hyperplasia without lower urinary tract symptoms Status: Chronic Assessment and Plan: * Continue tamsulosin and terazosin. * Trend urine output * Bladder scans PRN DS: Summary Hospital Course Hospital Course: Patient is an 82-year-old male with a past medical history of hypertension, hyperlipidemia, BPH, kidney stones, glaucoma, anxiety who presented after an injury to the left ankle. Patient noted to be walking and slipped on some ice. Upon arrival to the ED the left ankle did show displacement with fracture. Orthopedics was consulted and patient went for repair in the OR. It was also noted patient did have abnormal EKG and echo was performed however did not show any further findings. There is an upper lobe nodule that was noted on the CT and follow-up is needed outpatient. Venous Dopplers were performed and showed no DVT. Patient did exhibit lower extremity edema however does not seem to be any deficit at this time. Blood pressures have been stable throughout the entire visit and patient has been able to urinate on his own. He currently is stable for discharge for vital signs and labs. Patient is feeling okay and denies any chest pain, shortness a breath, nausea, vomiting, diarrhea, constipation, weakness or fatigue. Patient is being
[2022-07-08 13:21] LABS: EDCOVIDSCREEN Negative (Negative)
[2022-07-08 13:53] VITALS: BP 134/59; PULSE 89; RESP 18; TEMP 36.3; O2SAT 92
== END 2022-07-08 14:10 | DRG 494 ==
LOC: ANHED 07-05 07:01 → ANH2MED 07-05 15:06
PROVIDERS: Orthopaedic Surgery; Physician Assistant; Admitting Provider Family Medicine; Emergency Provider Emergency Medicine; PCP Family Medicine; Visit Provider Nurse Practitioner
PROC: 0QSK04Z Reposition Left Fibula with Internal Fixation Device, Open Approach (ICD-10-PCS; principal; 2022-07-06 12:00)
DX: S82.852A Displaced trimalleolar fracture of left lower leg, initial encounter for closed fracture (principal); R94.31 Abnormal electrocardiogram [ECG] [EKG]; N40.0 Benign prostatic hyperplasia without lower urinary tract symptoms; E78.5 Hyperlipidemia, unspecified; I10 Essential (primary) hypertension; Z20.822 Contact with and (suspected) exposure to COVID-19; R91.1 Solitary pulmonary nodule; H40.9 Unspecified glaucoma; F41.9 Anxiety disorder, unspecified; M19.90 Unspecified osteoarthritis, unspecified site; W00.0XXA Fall on same level due to ice and snow, initial encounter; Z87.442 Personal history of urinary calculi; Z85.828 Personal history of other malignant neoplasm of skin
CPT/HCPCS: 36415; 71045; 73610; 80048; 80053; 83735; 84443; 85025; 85027; 85610; 85730; 87426; 87636; 93005; 93306; 93970; 96374; 97116; 97161; 97165; 99199; 99285; A9270; C1713; C9803; G0378; J0690; J1100; J2270; J2405; J2704; J3010; J7120

== ENCOUNTER 2022-09-11 16:48 | Outpatient (CLI) | payer OTHER, SELFPAY ==
[2022-09-11 17:13] LABS: Alanine Aminotransferase 20 U/L (6-50); Albumin Level 4.3 g/dL (3.5-5.1); Alkaline Phosphatase 124 U/L (38-126); Anion Gap 7 mmol/L (8-16); Aspartate Amino Transferase 23 U/L (17-59); Bilirubin,Total 0.5 mg/dL (0.2-1.3); Blood Urea Nitrogen 15 mg/dL (9-20); Calcium 8.8 mg/dL (8.4-10.2); Carbon Dioxide 30 mmol/L (22-30); Chloride 107 mmol/L (98-107); Cholesterol 180 mg/dL (0-200); Estimated Glomerular Filt Rate > 60; Glucose 117 mg/dL (65-110); HDL Direct 41 mg/dL; Potassium 4.3 mmol/L (3.4-5.0); Sodium 144 mmol/L (137-145); Triglycerides 99 mg/dL (<150)
[2022-09-11 17:24] LABS: LDL Cholesterol Direct 100 mg/dL
[2022-09-11 17:44] LABS: Prostate Specific Antigen 2.8 ng/mL (< OR = 4.0)
== END 2022-09-11 16:49 | disposition home or self-care (01) ==
LOC: ANHLAB 16:49
PROVIDERS: PCP Family Medicine; Visit Provider Family Medicine
DX: Z13.228 Encounter for screening for other metabolic disorders (principal); Z13.220 Encounter for screening for lipoid disorders; Z12.5 Encounter for screening for malignant neoplasm of prostate
CPT/HCPCS: 36415; 80053; 80061; 84153; G0103

== ENCOUNTER 2023-10-04 13:32 | Outpatient (CLI) | payer OTHER, SELFPAY ==
--- NOTE | ~2023-10-04 | XR_ITS ---
EXAMINATION: XR shoulder LT min 2V INDICATION: Left shoulder pain TECHNIQUE: Four views of the left shoulder are submitted. COMPARISON: None FINDINGS: Normal alignment. No fracture. There is moderate glenohumeral joint osteoarthritis and mild acromioclavicular joint osteoarthritis. Soft tissues are unremarkable. IMPRESSION: 1. Osteoarthritis without acute osseous abnormality. Reviewed, dictated and finalized at location F.
--- NOTE | ~2023-10-04 | XR_ITS ---
EXAMINATION: XR shoulder RT min 2V INDICATION: Right shoulder pain TECHNIQUE: Four views of the right shoulder are submitted. COMPARISON: None FINDINGS: Normal alignment. No fracture. There is moderate glenohumeral joint osteoarthritis and mild acromioclavicular joint osteoarthritis. Soft tissues are unremarkable. IMPRESSION: 1. Osteoarthritis without acute osseous abnormality. Reviewed, dictated and finalized at location F.
== END 2023-10-04 13:33 ==
PROVIDERS: PCP Family Medicine; Visit Provider Family Medicine
DX: M19.011 Primary osteoarthritis, right shoulder (principal); M19.012 Primary osteoarthritis, left shoulder
CPT/HCPCS: 73030

== ENCOUNTER 2024-04-06 15:15 | Outpatient (CLI) | payer OTHER, SELFPAY ==
[2024-04-06 19:53] LABS: Alanine Aminotransferase 19 U/L (6-50); Alkaline Phosphatase 100 U/L (38-126); Anion Gap 8 mmol/L (4-12); Aspartate Amino Transferase 32 U/L (17-59); Bilirubin,Total 0.6 mg/dL (0.2-1.3); Blood Urea Nitrogen 21 mg/dL (9-20); Calcium 8.6 mg/dL (8.4-10.2); Carbon Dioxide 29 mmol/L (22-30); Chloride 102 mmol/L (98-107); Cholesterol 168 mg/dL (0-200); Estimated Glomerular Filt Rate > 60; Glucose 106 mg/dL (65-110); HDL Direct 54 mg/dL; Sodium 139 mmol/L (137-145); Triglycerides 77 mg/dL (<150)
[2024-04-06 20:02] LABS: Hemoglobin A1C 5.3 % (<5.7)
[2024-04-06 20:05] LABS: LDL Cholesterol Direct 84 mg/dL
== END 2024-04-06 15:16 | disposition home or self-care (01) ==
LOC: ANHGOSHLAB 15:16
PROVIDERS: PCP Family Medicine; Visit Provider Family Medicine
DX: E78.5 Hyperlipidemia, unspecified (principal); R73.9 Hyperglycemia, unspecified; Z13.220 Encounter for screening for lipoid disorders; Z13.228 Encounter for screening for other metabolic disorders
CPT/HCPCS: 36415; 80053; 80061; 83036

== ENCOUNTER 2024-06-04 18:22 | Emergency (ER) | payer OTHER, SELFPAY ==
--- NOTE | ~2024-06-04 | XR_ITS ---
XR foot LT min 3V DATE: 06/04/2024 19:54 INDICATION: Fall. Pain. TECHNIQUE: 3 views COMPARISON: None FINDINGS: There are virtually nondisplaced transverse fractures of the neck of the second through fou rth metatarsal bones. There is overlying soft tissue swelling. Osteopenia. Plate and screws along the distal fibular shaft and lateral malleolus. Plantar calcaneal enthesopathy. IMPRESSION: Virtually nondisplaced transverse fractures of the neck of the second through fourth meta tarsal bones Reviewed, dictated and finalized at location A. ERER HELPER IMPRESSION: Virtually nondisplaced transverse fractures of the neck of the seco nd through fourth metatarsal bones
[2024-06-04 18:23] VITALS: BP 131/79; PULSE 103; RESP 16; TEMP 36.3; O2SAT 96
--- NOTE | 2024-06-04 20:44 | ED.LOWEXIN ---
HPI - Extremity Injury (Lower) General Chief Complaint: Extremity Injury, Lower Stated Complaint: L foot pain & swelling Time Seen by Provider: 06/04/24 19:02 History of Present Illness HPI Narrative: 84-year-old male with a past medical history of multiple orthopedic procedures including left ankle fracture, status post repair, bilateral knee replacements. He presents to the emergency room today after a ground level mechanical fall at home. He twisted his ankle while turning awkwardly and fell down. Was able to get up with some assistance but some swelling on the dorsum of his left foot. Came to the ER for evaluation. Denies any numbness or tingling in the digit or foot. Able to plantar and dorsiflex and ambulate albeit with some pain. Took Aleve at home with some mild relief of his symptoms. No other injuries and did not his head or lose consciousness. Patient otherwise is been his normal state of health. Related Data Home Medications Medication Instructions Recorded Confirmed latanoprost 0.005 % eye drops 1 drp EACH EYE HS 12/10/21 04/06/24 Allergies Allergy/AdvReac Type Severity Reaction Status Date / Time No Known Allergies Allergy Verified 06/04/24 20:25 Review of Systems Review of Systems: As reviewed above in HPI [facility] Past Medical History Medical History Anxiety Arthritis Benign prostatic hyperplasia Glaucoma Hyperlipidemia Hypertension Kidney stone Skin cancer Surgical History Surgical History Closed trimalleolar fracture of left ankle ORIF on 07/06/2022 History of ankle surgery left- 2021 History of inguinal hernia repair, bilateral History of partial knee replacement Bilateral. History of tonsillectomy Family History Family History Mother , Age 89 Heart problems Arthritis Father , Age 69 Colon Cancer Colon cancer Grandparent , Age 94 Old Age No problems noted. Grandparent , Age 76 Heart Problems No problems noted. Grandparent , Age 72 Heart Problems No problems noted. Grandparent , Age 82 Heart Problems COPD (chronic obstructive pulmonary disease) Son , Age 54 Heart Problems No problems noted. Social History Social History Social History: Surrogate medical decision maker: Jeffrey James or Marisa Salvador, children. Code status: Full code. Smoking status: Never smoker Alcohol intake: never Substance use: never Lack of Transportation: No Lack of Food: Never True Current Housing: I Have Housing Concerned About Future Housing: No Difficulty Paying Gas/Electric Bills: No Difficulty Paying for Meds: No Currently Unemployed: No Education: High School Diploma/GED Difficulty w/ Childcare or Family Care: No Living arrangements: alone Additional living arrangements comments: . Lives alone in [place]. No pets. He had 3 children, 1 passed from heart disease. Occupation/Education: retired Spiritual care concerns: No Exam Narrative: GENERAL: [Well-appearing, well-nourished, and in no acute distress.] HEAD: [Normocephalic, atraumatic.] EYES: [PERRLA and EOMI.] ENT: Nares clear, no rhinorrhea or epistaxis. Mucous membranes moist. NECK: Supple. CHEST: [Clear to auscultation. No respiratory distress.] HEART: [Regular rate and rhythm]. No murmur heard. [Normal peripheral pulses.] ABDOMEN: [Soft, nondistended], [nontender], [No rigidity or guarding] EXTREMITIES: the dorsum of the left foot has some mild tenderness with palpation along the 2nd 3rd and 4th metatarsal area. Some bruising especially on the dorsal 2nd MTP joint. Plantar dorsiflexion are full. Able to wiggle the toes. Contralateral side without any swelling. No ankle tenderness or deformity. SKIN: Warm, dry, no rash. NEURO: [No focal deficits]. Alert and oriented [x3.] PSYCH: [Normal mood and affect.] Course Vital Signs Vital signs: Vital Signs Temperature 36.3 C L 06/04/24 18:23 Pulse Rate 103 H 06/04/24 18:23 Respiratory Rate 16 06/04/24 18:23 Blood Pressure 131/79 06/04/24 18:23 Pulse Oximetry 96 06/04/24 18:23 Oxygen Delivery Room Air 06/04/24 18:23 Temperature 36.3 C L 06/04/24 18:23 Pulse Rate 103 H 06/04/24 18:23 Respiratory Rate 16 06/04/24 18:23 Blood Pressure 131/79 06/04/24 18:23 Pulse Oximetry 96 06/04/24 18:23 Oxygen Delivery Room Air 06/04/24 18:23 MDM - Extremity Injury (Lower) MDM Narrative Medical decision making narrative: 84-year-old male presenting after a ground level mechanical fall. He stepped onto his left ankle awkwardly and fell forward. Denied his and lose consciousness. Has some swelling and bruising dorsally on the left foot at the MTP junction of the 2nd 3rd and 4th digit. Full range of motion, no neuropathy or cardiovascular compromise. No significant swelling compromising soft tissues are musculature. Normal reassuring vital signs otherwise appears well in a good spirits. He has had previous orthopedic surgeries in the past but does not presently follow with any orthopedic doctors. x-rays were obtained of the left foot and I independently reviewed the myself and I do appreciate nondisplaced fractures of the 2nd 3rd and 4th metatarsal bones at the neck. No other obvious injuries but you can see his previous plate and screws from his left ankle fracture remotely. Patient was made aware of his fractures and given a low-dose oxycodone for pain control. His pain is tolerable at this time. Heart so she was provided for ambulation assistance and support and patient will be able to be followed up safely outpatient with a orthopedic or unit secy. Patient preferred to be seen by Dr. James and a referral was made to him. we discussed pain control options at home including Tylenol ibuprofen as well as a prescription for low-dose oxycodone for the next few days. Differential Diagnosis Differential diagnosis: Likely ankle sprain and strain, fracture of toe, ankle fracture and other Medical Records Attestation: I reviewed the patient's medical records. Imaging Data Attestation: I personally reviewed and interpreted this imaging study as follows: My impression: Nondisplaced 2nd 3rd and 4th metatarsal neck fracture Radiologist's impression: Impressions Foot X-Ray 06/04/24 20:06 IMPRESSION: Virtually nondisplaced transverse fractures of the neck of the second through fourth metatarsal bones Discharge Plan Discharge Clinical Impression: Metatarsal fracture Patient Disposition: Home, Self-Care Condition: Stable Instructions: Antibiotic Form Additional Instructions: alternate Tylenol ibuprofen for pain control as well as breakthrough pain medication including oxycodone. Wear hard-soled postop shoe for comfort and support and follow-up with your outpatient primary care provider and the residential support specialist we will refer you to. return at any time if he developing numbness and toes, discoloration or any significant pain or swelling. Prescriptions: New oxycodone 5 mg tablet 2.5 mg PO Q8H PRN (Reason: pain) Qty: 10 0RF No Action latanoprost 0.005 % drops 1 drp EACH EYE HS amlodipine 10 mg tablet 10 mg PO HS Qty: 90 1RF terazosin 10 mg capsule 10 mg PO HS Qty: 90 1RF tamsulosin 0.4 mg capsule 0.4 mg PO DAILY Qty: 90 1RF finasteride 5 mg tablet 5 mg PO 1700 Qty: 90 1RF ezetimibe 10 mg tablet 10 mg PO DAILY Qty: 90 1RF Follow-up/Referrals: Aidan Real Jr., DPM [Physician] - 3 Days (MT fracture) Catalino Beasley DO [Primary Care Provider] - Time of Disposition: 20:51
[2024-06-04] MEDS: oxyCODONE HCL (*CRX) 2.5 MG TAB IR PO (20:51)
[2024-06-04 20:54] VITALS: BP 127/77; PULSE 97; RESP 17; TEMP 36.3; O2SAT 97
== END 2024-06-04 21:07 | disposition home or self-care (01) ==
PROVIDERS: Emergency Provider Student in an Organized Health Care Education/Training Program; PCP Family Medicine
DX: S92.325A Nondisplaced fracture of second metatarsal bone, left foot, initial encounter for closed fracture (principal); S92.335A Nondisplaced fracture of third metatarsal bone, left foot, initial encounter for closed fracture; S92.345A Nondisplaced fracture of fourth metatarsal bone, left foot, initial encounter for closed fracture; I10 Essential (primary) hypertension; E78.5 Hyperlipidemia, unspecified; N40.0 Benign prostatic hyperplasia without lower urinary tract symptoms; H40.9 Unspecified glaucoma; Z96.653 Presence of artificial knee joint, bilateral; Z87.442 Personal history of urinary calculi; Z85.828 Personal history of other malignant neoplasm of skin; X50.9XXA Other and unspecified overexertion or strenuous movements or postures, initial encounter; Z79.899 Other long term (current) drug therapy; W18.39XA Other fall on same level, initial encounter
CPT/HCPCS: 73630; 99284; A9270

== ENCOUNTER 2024-12-28 15:43 | Outpatient (CLI) | payer OTHER, SELFPAY ==
--- OUTSIDE RECORDS SUMMARY | 2024-12-28 15:46 | XMS_ITS | CONTINUITY OF CARE DOCUMENT ---
Author Name anthony cruz Address Unknown Organization [facility] Address [address] [place] [address] Phone [phone] Care Team Providers Care Mechanical Developer Prover Name Role Phone Ignacio Nava MD Unavailable SETH SHIPLEY MD Unavailable [phone] SETH SHIPLEY MD Unavailable PROBLEMS Condition Status Date Provider Notes Cardiology examination active Ignacio fernandez MD Family History of CVA or Stroke: active Ignacio Nava MD Family History of CVA or Stroke: active Ignacio Nava MD Family History of Hypertension: active Matty Nava MD SOB active Ignacio Nava MD HTN essential active Ignacio Nava MD Hyperlipidemia - statin intolerant active Dl Kyte Pleural calcification active Ignacio Nava MD Exposure to SARS-associated coronavirus completed - Ignacio Nava MD ENCOUNTERS Date Type Provider Location Encounter Diag nosis - In-person encounter Office Visit Ignacio Nava MD [facility] - In-person encounter Office Visit Ignacio Nava MD [facility] Exposure to SARS-associated coronavirus - In-person encounter Office Visit Ignacio Nava MD [facility] Cardiology examinationFamily History of CVA or Stroke:Family History of CVA or Stroke:Family History of Hypertension:SOBHTN essentialHyperlipidemia - statin intolerantPleural calcification VITAL SIGNS Date Observation Value Provider Body Mass Index (Ratio) 33.28 kg/m2 Esau Holder blood pressure, diastolic 74 mm[Hg] Cy josue Mcconnell blood pressure, systolic 119 mm[Hg] Izabella Mcconnell oxygen saturation, oximetry 96 % Vera Mcconnell pulse rate 85 /min Vera macias respiratory rate E&M 16 /min Vera Mcconnell blood pressure, cuff size regular Cy josue Mcconnell weight E&M 232 [lb_av] Vera Osei height E&M 70 [in_i] Vera Mcgregorthang temperature site temporal Heydi Tank sley temperature E&M 95.9 [degF] Heydi Tanks elen Body Mass Index (Ratio) 32.71 kg/m2 Esau Holder blood pressure, diastolic 89 mm[Hg] To nsha Matthews blood pressure, systolic 142 mm[Hg] Ton sha Matthews oxygen saturation, oximetry 97 % [facility] respiratory rate E&M 16 /min [facility] Matthews pulse rate 81 /min Tons Matthews weight E&M 228 [lb_av] Tons Matthews height E&M 70 [in_i] Tons Matthews temperature site temporal Fern Livel y temperature E&M 97.3 [degF] Fern Lively Body Mass Index (Ratio) 31.85 kg/m2 Esau Holder temperature E&M 97.5 [degF] Ann Puhs e blood pressure, resting Yes Brit haylee Block pulse rate 92 /min Rebecca Block blood pressure, diastolic 70 mm[Hg] Br ittany Block blood pressure, systolic 122 mm[Hg] Samra ttany Block oxygen saturation, oximetry 95 % Rebecca Horton height E&M 70 [in_i] [facility] weight E&M 222 [lb_av] Rebecca Count Includes [facility] respiratory rate E&M 16 /min Nidia Horton ALLERGIES No Known Drug Allergies RESULTS Date Observation Value Provider Reference Range Interpretation Location eGFR if 105 mL/min/{1. 73_m2} [facility] >59 eGFR if not 91 mL/min/{1. 73_m2} [facility] >59 creatinine, serum 0.66 mg/dL [facility] 0.76-1.27 Low HISTORY OF MEDICATION USE Medication Status Instructions Dates Provider Indications Com ments METOPROLOL TARTRATE 100 MG ORAL TABLET active Take one tab the night before CTA heart and one tab at 10:30am on the day of the CTA 7 Yossi Hamilton RN LATANOPROST 0.005 % OPHTHALMIC SOLUTION active 1 drop in each eye daily 2 Rebecca Block #7, 90 days supply, Prescribed by FRANCISCO VARELA, Filled 08/19/2019 QUINAPRIL HCL 40 MG ORAL TABLET active 1 tab daily 7 Rebecca Block #90, 90 days supply, Prescribed by SETH SHIPLEY, Filled 09/07/2019 PAROXETINE HCL 10 MG ORAL TABLET active 1 tab daily 4 Rebecca Block #90, 90 days supply, Prescribed by SETH SHIPLEY, Filled 08/03/2019 TERAZOSIN HCL 10 MG ORAL CAPSULE active 1 tab daily 6 Rebecca Block #90, 90 days supply, Prescribed by SETH SHIPLEY, Filled 06/25/2019 EZETIMIBE 10 MG ORAL TABLET active 1 tab daily 7 Rebecca Block #90, 90 days supply, Prescribed by SETH SHIPLEY, Filled 06/17/2019 AMLODIPINE BESYLATE 10 MG ORAL TABLET active 1 tab daily 7 Rebecca Block #90, 90 days supply, Prescribed by SETH SHIPLEY, Filled 09/07/2019 SOCIAL HISTORY Date Observation Value Provider social history E&M S moking History: P atient is a former smoker. Ignacio Nava MD social history reviewed E&M revi ewed - no changes required Ignacio Nava MD smoking status Former smoker Vera iglesias social history E&M S moking History: Rajwinder ojn is a former smoker. Ignacio Nava MD social history reviewed E&M revi ewed - no changes required Ignacio Nava MD smoking status Former smoker Saige Matthews number of grandchildren Ignacio Holder social history E&M S moking History: Rajwinder jon has never smoked. Dl Holder social history reviewed E&M revi ewed - no changes required Dl Holder alcohol use no Rebecca Block smoking status Never smoker Rebecca Bloc k FAMILY HISTORY Family Member Condition Father Family History of Co inessa Cancer: Mother Family History of Hy pertension: Full Brother Family History of Co ngestive Heart Failure: Full Brother Family History of Di abetes: Full Brother Family History of CV A or Stroke: Full Brother Family History of Co ngestive Heart Failure: Full Brother Family History of CV A or Stroke: INSURANCE PROVIDERS Payer name Policy type / Coverage type [place] red democrat ID [facility] [id number] ADVANCE DIRECTIVES Name Date DISCUSSED - NO DECISION MADE TREATMENT PLAN Date Name Performer Cardiology:Blood pressure contro l is satisfactory. Dl rom Cardiology:Seen on c hest CT. Dl Cardiology:Continues on Zetia. Will repeat lipid panel in 3 months. Dl Cardiology:Resolved. His echo, stress, and PFTs were normal. His coronary CTA showed Minor calcifications result in an elevated Agatston Calcium Score of 484 but without signficant coronary artery stenosis. The patient has been reassured. Dl Holder Cardiology:Seen on c hest CT. Dl Holder Cardiology:[id number]. He gives a hi story of statin intolerance. Dl Holder Cardiology:Blood pre ssure elevated. Advised reduced sodium intake. Dl Parson Cardiology:Persisten t shortness of breath. His stress test, echo, and PFTs were unremarkable. I did discuss with him coronary CTA vs cardiac in view of his risk factors and he would like to consider the options. Dl Holder Cardiology:Seen on chest CT. Neville Parson Cardiology:Blood pressure contro l is satisfactory. Dl Holder Cardiology:History o f statin intolerance. Will request labs from your office. Dl Holder Cardiology:Effort re lated shortness of breath and abnormal EKG in a patient with risk factors for CAD and coronary artery calcification on CT, will arrange stress test and echocardiogram. Will also arrange PFTs. Dl Holder Date Name LIPID PANEL CT Angio Coronaries Creatinine, Serum Covid Antibody Igg DLCO - 54818 FRC - 12139 FVC - 68325 Stress Regadenoson Complete Echo HISTORY OF PROCEDURES Procedure Date Procedure Name Provider Procedure Notes S tatus EKG Ignacio Nava MD complet ed EKG Ignacio Nava MD complet ed Regadenoson, 4 units Ignacio Nava MD completed Cardiolite, 2 units Ignacio Nava MD completed SPECT Images Ignacio Nava MD compl eted Stress EKG Ignacio Nava MD complet ed FVC / MVV with bronchodilator - 80103 Ignacio Nava MD completed BLOOD COUNT HEMOGLOBIN Ignacio Nava MD completed FRC - 24723 Ignacio Nava MD comple rajwinder SpO2 w/o 6min walk/titration Ignacio Nava MD completed DLCO - 75254 Ignacio Nava MD compl eted EKG Ignacio Nava MD complet ed
--- OUTSIDE RECORDS SUMMARY | 2024-12-28 15:46 | XMS_ITS | Continuity of Care Document ---
Author Organization [facility] Address [address] [place] [address] [place] [address] Phone Care Team Providers Care Shipping Agent Name Role Phone Hallie Ferrell Unavailable Unavailable Procedures Procedure Date Office/outpatient Visit, Est Visual Field Examination(s) Office/outpatient Visit, Est Office/outpatient Visit, Est Visual Field Examination(s) Office/outpatient Visit, Est Office/outpatient Visit, Est Visual Field Examination(s) Office/outpatient Visit, Est Corneal Pachymetry Office/outpatient Visit, Est Visual Field Examination(s) Advance Directives Directive Yes / No Effective Date File Name No Information Encounters Encounter Description Practice Location Reason(s) For Visit Diagnoses Date Provider Providers Copied on Encounter Office/outpat ient Visit, Est [facility], [address] [place] [address] [address], [place], [place], [id number], [place] tel:[phone] [facility] [place] No Information 2-201 0 Mariaelena Fulton [address] [facility] [place] , [address], [place], [address], [place]. tel:[phone] [facility], [address], [place], [place], [id number], [place] tel:[phone] [facility] [place] No Information May-0 7-201 0 Mariaelena [facility] , [address], [place], [place], [facility], [place]. tel:[phone] Referring Provider: Hallie Paige, [facility] [address], [place], [place], [facility]. tel:[phone] Office/outpat ient Visit, [facility] [address] [place] [address] [address], [place], [place], [id number], [place] tel:[phone] [facility] [place] No Information Dec-1 0-200 9 Mariaelena [facility] , [address], [place], [place], [facility], [place]. tel:[phone] Office/outpat ient [place], [facility] [address] [place] [address] [address], [place], [place], [id number], tel:[phone] [facility] [place] No Information Aug-2 0-200 9 Mariaelena [facility] , [address], [place], [place], [facility], [place]. tel:[phone] [facility], [address] [place] [address] [address], [place], [place], [id number], [place] tel:[phone] [facility] [place] No Information Apr-2 3-200 9 Mariaelena [facility] , [address], [place], [place], [facility], [place]. tel:[phone] Referring Provider: Darin [facility] [address], [place], [place], [facility]. tel:[phone] Office/outpat ient Visit, [facility] [address] [place] [address] [address], [place], [place], [id number], [place] tel:[phone] [facility] No Information Dec-1 8-200 8 Mariaelena [facility] , [address], [place], [place], [facility], [place]. tel:[phone] Office/outpat ient Visit, [facility], [address], [place], [place], [id number], [place] tel:[phone] [facility] No Information 2 8-200 8 Mariaelena Fulton [address] [facility] , [address], [place], [place], [facility], . tel:[phone] [facility], [address] [place] [address] [address], [place], [place], [id number], [place] tel:[phone] [facility] [place] No Information 0-200 8 Mariaelena Fulton [address] [place], [place] [address] [address] , [address], [place], [place], [facility], . tel:[phone] Referring Provider: Hallie Paige, [facility] [address], [place], [place], [facility]. tel:[phone] Office/outpat ient Visit, [facility], [address] [place] [address] [address], [place], [place], [id number], [place] tel:[phone] [facility] [place] No Information Jun-0 6-200 7 Mariaelena Fulton [address] [facility] , [address], [place], [place], [facility], . tel:[phone] Referring Provider: Hallie Paige, [facility] [address], [place], [facility]. tel:[phone] [facility]pat [facility], [address] [place] [address] [address], [place], [place], [id number], [place] tel:[phone] SEC [facility] No Information 2 6200 7 Mariaelena Fulton [address] [facility] , [address], [place], [place], [facility], . tel:[phone] [facility], [address] [place] [address] [address], [place], [place], [id number], [place] tel:[phone] SEC [facility] No Information 9-200 7 Mariaelena [place]. [address] [facility] , [address], [place], [address], . tel:[phone] Referring Provider: Hallie Paige, [address] [facility] [address], [place], [place], [facility]. tel:[phone] Family History Family Member Type Diagnosis Age At Onset No Information Payers Payer name Insurance type Covered alliance party ID Authoriza tion(s) No Information Social History Type Description Quantity Date Captured Comments Sex Male Smoking Status No Information Chief Complaint And Reason For Visit No Information Reason For Referral Reason For Referral No Information History Of Present Illness Encounter Date Complaint History Of Prese nt Illness No Information Functional Status Date Functional Assessmen t No Information Instructions Date Instruction Additional Infor mation No Information Assessments Type Assessment Date No Information Patient Care Teams Name Effective Dates (start - stop) Status Members No Information
--- OUTSIDE RECORDS SUMMARY | 2024-12-28 15:46 | XMS_ITS | Clinical Summary ---
Author Organization [facility] Address [address] [place] [address] Phone Care Team Providers Care Lockstitch Collar Setter Name Role Phone Maria Teresa Centeno MD Primary Care Provider Allergies No known active allergies Medications ezetimibe (ZETIA) 10 MG Tablet Take 10 mg by mouth daily. Active quinapril (ACCUPRIL) 40 MG Tablet Take 40 mg by mouth every evening. Active PARoxetine (PAXIL) 10 MG Tablet Take 10 mg by mouth daily. Active amLODIPine (NORVASC) 10 MG Tablet Take 10 mg by mouth daily. Active terazosin (HYTRIN) 10 MG Capsule Take 10 mg by mouth daily. Active Bimatoprost (LUMIGAN) 0.01 % Solution Place 1 Drop in affected eye(s) nightly. 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 Family History Medical History Relation Name Comments Heart Disease Brother Hypertension Brother Diabetes Mother Heart Disease Mother Hypertension Mother Cancer Sister Hypertension Sister Relation Name Status Comments Brother Father Mother Sister Social History Tobacco Use Types Packs/Day Years Used Date Smoking Tobacco: Former Cigarettes 1 10 Alcohol Use Standard Drinks/Week Comments No 0 (1 standard drink = 0.6 oz pur e alcohol) Sex and Gender Information Value Date Recorded Sex Assigned at Not on file Legal Sex Male 12:42 PM CDT Gender Identity Not on file Sexual Orientation Not on file Last Filed Vital Signs Vital Sign Reading Time Taken Comments Blood Pressure 141/68 03/05/2017 11:40 AM CDT Pulse 59 03/05/2017 11:40 AM CDT Temperature 36.7 C (98.1 F) 03/05/2017 11:40 AM CDT Respiratory Rate 20 03/05/2017 11:40 AM CDT Oxygen Saturation 96% 03/05/2017 11:40 AM CDT Inhaled Oxygen Concentration - - Weight 98.4 kg (217 lb) 03/05/2017 11:40 AM CDT Height 177.8 cm (5' 10) 03/05/2017 11:40 AM CDT Body Mass Index 31.14 03/05/2017 11:40 AM CDT Plan of Treatment Health Maintenance Due Date Last Done Comments Hepatitis C Virus (HCV) Screening 1940 TdaP Immunization 1940 Pneumococcal Immunization (5 0+ years) (1 of 1 - PCV) 01/13/1988 Zoster Immunization (1 of 2) 01/13/1988 Respiratory Syncytial Virus (RSV) Immunization (Adult) (1 - 1-dose 75+ series) 2013 Influenza Immunization (#1) 2024 SARS-COV-2 Immunization ( - ) 03/12/2024 Hepatitis B Immunization Aged Out No longer eligible based on patient's age to complete this topic Meningococcal Immunization (ACWY) Aged Out No longer eligible based on patient's age to complete this topic Rotavirus Immunization Aged Out No lo nger eligible based on patient's age to complete this topic Insurance [phone] [id number] (Work) [address] Care Teams Lockstitch Collar Setter Relationship Specialty Start Date End Date Maria Teresa Centeno MD [address] [place] [address] PCP - General Internal Medicine 02/16/17
[2024-12-28 16:25] LABS: Hematocrit 37.3 % (42.0-52.0); Hemoglobin 12.2 g/dL (14.0-18.0); Mean Corpuscular HGB Conc 32.7 g/dl (32-36); Mean Corpuscular Hemoglobin 31.3 pg (26-34); Mean Corpuscular Volume 95.6 fl (80-100); Platelet Count Result 263 k/mm3 (150-375); Red Cell Distribution Width 13.2 % (11.5-14.5); White Blood Count 6.6 K/mm3 (4.5-10.0)
[2024-12-28 16:46] LABS: Alanine Aminotransferase 18 U/L (6-50); Albumin Level 3.8 g/dL (3.5-5.1); Alkaline Phosphatase 97 U/L (38-126); Anion Gap 8 mmol/L (4-12); Aspartate Amino Transferase 25 U/L (17-59); Bilirubin,Total 0.3 mg/dL (0.2-1.3); Blood Urea Nitrogen 17 mg/dL (9-20); Calcium 8.8 mg/dL (8.4-10.2); Carbon Dioxide 25 mmol/L (22-30); Chloride 105 mmol/L (98-107); Estimated Glomerular Filt Rate > 60; Glucose 129 mg/dL (65-110); Potassium 3.7 mmol/L (3.4-5.0); Sodium 138 mmol/L (137-145); Total Protein 6.9 g/dL (6.3-8.2)
== END 2024-12-28 15:44 | disposition home or self-care (01) ==
PROVIDERS: PCP Family Medicine; Visit Provider Family Medicine
DX: E78.5 Hyperlipidemia, unspecified (principal); I10 Essential (primary) hypertension
CPT/HCPCS: 36415; 80048; 80076; 85027

== ENCOUNTER 2025-02-19 13:48 | Outpatient (CLI) | payer OTHER, SELFPAY ==
--- OUTSIDE RECORDS SUMMARY | 2025-02-19 14:06 | XMS_ITS | Clinical Summary ---
Author Organization [facility] Address [address] [place] [address] Phone Care Team Providers Care Local Intermodal Truck Driver Name Role Phone Maria Teresa Centeno MD [...] (Adult) (1 - 1-dose 75+ series) 2013 SARS-COV-2 Immunization (1 - ) 03/12/2024 Influenza Immunization (#1) 2025 Hepatitis B Immunization Aged Out No longer eligible based on patient's age to complete this topic Human Papillomavirus (HPV) Immunization Aged Out No longer eligible b ased on patient's age to complete this topic Meningococcal Immunization (ACWY) Aged Out No longer eligible based on patient's age to complete this topic Rotavirus Immunization Aged Out No lo nger eligible based on patient's age to complete this topic Insurance [phone] [id number] (Work) [address] [place] [address] [facility] Care Teams Local Intermodal Truck Driver Relationship Specialty Start Date End Date Maria Teresa Centeno MD [address] [place] [address] PCP - General Internal Medicine 02/16/17
[2025-02-19 14:29] LABS: Hematocrit 38.7 % (42.0-52.0); Hemoglobin 13.1 g/dL (14.0-18.0); Immature Granulocyte Percent A 0.5 % (0-0.5); Lymphocytes Absolute Auto 0.95 K/mm3 (0.9-3.2); Mean Corpuscular HGB Conc 33.9 g/dl (32-36); Mean Corpuscular Hemoglobin 31.3 pg (26-34); Mean Corpuscular Volume 92.6 fl (80-100); Nucleated Red Blood Cells Absolute Auto 0.000 K/mm3 (0.0-0.012); Nucleated Red Blood Cells Perc 0.0 % (0.0-0.2); Platelet Count Result 301 k/mm3 (150-375); Red Blood Count 4.18 M/mm3 (4.6-6.20); White Blood Count 6.0 K/mm3 (4.5-10.0)
[2025-02-19 14:54] LABS: Iron 107 ug/dL (49-181)
[2025-02-19 15:11] LABS: Percent Iron Saturation 41 % (20-50)
[2025-02-19 15:24] LABS: Prostate Specific Antigen 2.5 ng/mL (< OR = 4.0)
[2025-02-19 15:35] LABS: Ferritin 107.00 ng/mL (11.1-264)
[2025-02-19 15:43] LABS: Vitamin B12 616.0 pg/mL (239-931)
== END 2025-02-19 13:49 | disposition home or self-care (01) ==
LOC: ANHLAB 13:51
PROVIDERS: PCP Family Medicine; Visit Provider Family Medicine
DX: Z12.5 Encounter for screening for malignant neoplasm of prostate (principal); D64.9 Anemia, unspecified; N40.0 Benign prostatic hyperplasia without lower urinary tract symptoms
CPT/HCPCS: 36415; 82607; 82728; 83540; 83550; 84153; 85025; G0103